=== PATIENT | female | born 1930 | race Caucasian/White ===

== ENCOUNTER 2016-10-13 13:39 | Emergency (ER) | payer OTHER, MEDICARE ==
[2016-10-13 13:53] VITALS: BP 174/89; BMI 26.2
--- NOTE | 2016-10-13 14:13 | DR.GENAD ---
HPI - PCP Primary Care Physician: BUCKY - HPI Comment HPI Comment: Pt c/o 2-day h/o Right ear pain and yellow drainage since changing her battery and filter in her hearing aide 2 days ago. She denies fever and chills but reports hearing loss. - Complaint/Symptoms Chief Complaint Doctors Comments: right ear pain and drainage Chief Complaint:: EAR INFECTION, DRAINAGE AND EAR POPPING MILD PAIN. 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 Surgery, Tonsillectomy - Family History History of Family Medical Conditions: Yes Family Medical History: [place], Coronary Artery Disease, Heart Failure, Sudden Cardiac , Hypertension - Social History Does any household member use tobacco: No Alcohol Use: None Do you use any recreational Drugs:: No Lives With: Alone Lives Where: Home - infectious screening In the last 2 months have you had wt loss of >10#?: NO Have you had fever, night sweats or hemotysis?: No Have you traveled outside the country in the last 6 months?: No Isolation: Standard ROS - Review of Systems Constitutional: No Symptoms Reported Eyes: No Symptoms Reported ENTM: Ear Pain, Ear Discharge, Hearing Loss Respiratoy: No Symptoms Reported Cardiovascular: No Symptoms Reported Gastrointestinal/Abdominal: No Symptoms Reported Genitourinary: No Symptoms Reported Neurological: No Symptoms Reported Psychiatric: No Symptoms Reported All Other Systems: Reviewed and Negative PE - Vital Signs Vitals: Temperature 98.1 F Pulse Rate 91 Respiratory Rate 20 Blood Pressure [Left Arm] 176/74 Blood Pressure 174/89 O2 Sat by Pulse Oximetry 98 - General Limitations: No Limitations General Appearance: Alert, In No Apparent Distress - Head Head Exam: Normal Inspection, Atraumatic - ENT External Ear Exam: Normal External Inspection TM/Canal Exam: Left Normal, Right Erythema, Right Effusion, Right Canal Drainage Nose Exam: Normal Nose Exam Mouth Exam: Normal Inspection Throat Exam: Normal Inspection - Neck Neck Exam: Normal Inspection, Full ROM, Trachea Midline - Chest Chest Inspection: Normal Inspection - Respiratory Respiratory Exam: Normal Lung Sounds Bilat Respiratory Exam: Bilateral Clear to Auscultation - Cardiovascular Cardiovascular Exam: Regular Rate, Irregular Rhythm, Normal Heart Sounds - Neurologic Neurological Exam: Alert, Oriented X3, CN II-XII Intact - Psychiatric Psychiatric Exam: Normal Affect, Normal Mood - Skin Skin Exam: Warm, Dry, Intact, Normal Color [facility] - Differential Diagnosis Differential Diagnosis: otitis media, suppurative otitis media ROR - Labs Reviewed Laboratory Results Reviewed?: No (none ordered) - Diagnosis Discharge Problem: Suppurative otitis media of right ear with tympanic membrane rupture Qualifiers: Chronicity: acute - Discharge Plan Disposition: HOME, SELF-CARE Condition: Stable Prescriptions: Ciprofloxacin HCl [Ciprofloxacin HCl ophth] 1 - 2 drops AFFEYE Q2H #5 ml - Follow ups/Referrals Follow ups/Referrals: Abraham Reed [Primary Care Provider] - 3 days - Instructions Instructions: Otitis Media, Adult, [id number]
[2016-10-13] MEDS ORDERED: ROCEPHIN VIAL 2 GM IM ONE (14:41)
[2016-10-13] MEDS ORDERED: ROCEPHIN VIAL 1 GM ONE (14:42)
[2016-10-13] MEDS ORDERED: XYLOCAINE 1 % (PLAIN) ONE (14:43)
[2016-10-13] MEDS ORDERED: ROCEPHIN VIAL 2 GM IM NR (15:00)
== END 2016-10-13 15:00 | disposition home or self-care (01) ==
LOC: ER 13:48
DX: H66.41 Suppurative otitis media, unspecified, right ear (principal)
CPT/HCPCS: 96372; 99281; 99282; J0696; J2001

== ENCOUNTER 2017-03-04 16:12 | Inpatient (IN) | payer OTHER, MEDICARE ==
--- NOTE | 2017-03-04 17:08 | DR.GENAD ---
HPI - PCP Primary Care Physician: TRE - HPI Comment HPI Comment: DENIES SOB. NO HISTORY OF TRAUMA. - Complaint/Symptoms Chief Complaint Doctors Comments: PAIN, SWELLING RIGHT ANKLE AND FOOT. HAVE FEVER. UNABLE TO BEAR WEIGHT ON THE LEFT SIDE. Chief Complaint:: PT C/O PAIN TO LEFT ANKLE AND STATES SHE CAN'T WALK ON IT. 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: No Have you traveled outside the country in the last 6 months?: No Isolation: Standard ROS - Review of Systems Constitutional: Fever, Weakness Eyes: negative: Eye Pain, Discharge ENTM: negative: Ear Pain, Nose Discharge, Nose Congestion, Throat Pain Respiratoy: Short of Breath (ON EXERTION). negative: Productive Cough, Non- Productive Cough, Wheezing, Hemoptysis Cardiovascular: Edema (LT ANKLE AND FOOT). negative: Chest Pain Gastrointestinal/Abdominal: No Symptoms Reported Genitourinary: negative: Hematuria Neurological: negative: Headache, Weakness, Dizziness Musculoskeletal: Back Pain Integumentary: Change in Color, Other (LEFT ANKLE AND FOOT SWOLLEN AND SLIGHTLY RED.) Hematologic/Lymphatic: Easy Bruising Endocrine: No Symptoms Reported All Other Systems: Reviewed and Negative PE - Vital Signs Vitals: Temperature 99.2 F Pulse Rate 92 Respiratory Rate 20 Blood Pressure [Left Arm] 176/74 Blood Pressure 138/67 - General Limitations: No Limitations General Appearance: Alert - Head Head Exam: Normal Inspection - Eyes Eye exam: Normal Appearance - ENT ENT Exam: Normal External Ear Exam External Ear Exam: Normal External Inspection TM/Canal Exam: Bilateral Normal Nose Exam: Normal Nose Exam Mouth Exam: Normal Inspection Throat Exam: Normal Inspection - Neck Neck Exam: Trachea Midline - Chest Chest Inspection: Symmetric Chest Wall Rise - Respiratory Respiratory Exam: Normal Lung Sounds Bilat Respiratory Exam: Bilateral Rhonchi, Lower Rhonchi - Cardiovascular Cardiovascular Exam: Regular Rate, Normal Rhythm, Normal Heart Sounds - Abdominal Exam Abdominal Exam: Normal Bowel Sounds, Soft. negative: Tenderness - Extremities Extremities Exam: Tenderness (SWELLING, SLIGHT REDNESS AND TENDERNESS ON LEFT ANKLE AND FOOT.) - Back Back Exam: Paraspinal Tenderness MDM - Additional Information Additional Information Obtained From: Family - Differential Diagnosis Differential Diagnosis: GOUT, FRATURE, CELLULITIS, SPRAIN Course - Treatment Treatment: SEE ORDERS. - Consultation Consultation Comments: DISCUSS PATIENT WITH PENG BROWN. HE WILL ADMIT PATIENT. - Education/Counseling Education/Counseling: Patient, Family, Education Educated On: Diagnosis ROR - Labs Reviewed Laboratory Results Reviewed?: Yes Result Diagrams: 03/05/17 04:05 03/05/17 04:05 Laboratory: WBC 10.0 X10^3/uL (3.6-10.0) 03/04/17 18:05 RBC 4.83 X10^6/uL (3.5-5.4) 03/04/17 18:05 Hgb 13.3 g/dL (12.0-16.0) 03/04/17 18:05 Hct 39.1 % (36.0-47.0) 03/04/17 18:05 MCV 81.0 fL (80.0-100.0) 03/04/17 18:05 MCH 27.5 pg (27.0-34.0) 03/04/17 18:05 MCHC 34.0 g/dL (33.0-35.0) 03/04/17 18:05 RDW 17.4 % (11.6-16.5) H 03/04/17 18:05 Plt Count 162 X10^3/uL (150.0-450.0) 03/04/17 18:05 MPV 8.4 fL (7.4-11.0) 03/04/17 18:05 Neut % 88.5 % (42.0-75.0) H 03/04/17 18:05 Lymph % 4.9 % (21.0-51.0) L 03/04/17 18:05 [place] % 6.2 % (0.0-13.0) 03/04/17 18:05 Eos % 0.0 % (0.9-2.9) L 03/04/17 18:05 Baso % 0.4 % (0.2-1.0) 03/04/17 18:05 Neut # 8.9 x10^3/uL (2.2-4.8) H 03/04/17 18:05 Lymph # 0.5 X10^3/uL (1.3-2.9) L 03/04/17 18:05 [place] # 0.6 x10^3/uL (0.3-0.8) 03/04/17 18:05 Eos # 0.0 x10^3/uL (0.0-0.2) 03/04/17 18:05 Baso # 0.0 X10^3/uL (0.0-0.1) 03/04/17 18:05 Absolute Nucleated RBC 0.0 /100WBC 03/04/17 18:05 Sodium 128 mmol/L (136-145) L 03/04/17 18:05 Corrected Sodium 129 mmol/L (136-145) L 03/04/17 18:05 Potassium 3.9 mmol/L (3.5-5.1) 03/04/17 18:05 Chloride 94 mmol/L (98-107) L 03/04/17 18:05 Carbon Dioxide 27.3 mmol/L (21-32) 03/04/17 18:05 BUN 22 mg/dL (7-18) H 03/04/17 18:05 Creatinine 0.83 mg/dL (0.55-1.02) 03/04/17 18:05 Est GFR (MDRD) Af Amer > 60 (>60) 03/04/17 18:05 Est GFR (MDRD) Non-Af > 60 (>60) 03/04/17 18:05 Glucose 136 mg/dL (65-99) H 03/04/17 18:05 Uric Acid 3.8 mg/dL (2.6-6.0) 03/04/17 18:05 Calcium 8.7 mg/dL (8.5-10.1) 03/04/17 18:05 Corrected Calcium TNP 03/04/17 18:05 Total Bilirubin 0.80 mg/dL (0.2-1.0) 03/04/17 18:05 AST 29 Units/L (15-37) 03/04/17 18:05 ALT 24 Units/L (12-78) 03/04/17 18:05 Alkaline Phosphatase 70 Units/L (46-116) 03/04/17 18:05 Total Protein 6.6 g/dL (6.4-8.2) 03/04/17 18:05 Albumin 3.7 g/dL (3.4-5.0) 03/04/17 18:05 Globulin 2.9 g/dL (2.5-4.5) 03/04/17 18:05 Albumin/Globulin Ratio 1.3 Ratio (1.1-2.1) 03/04/17 18:05 - XRAY XRAY Findings: REPORT DISCUSS WITH PATIENT. - Diagnosis Discharge Problem: Hyponatremia, Chondrocalcinosis, Rash Left ankle pain Qualifiers: Chronicity: acute Qualified Code(s): M25.572 - Pain in left ankle and joints of left foot Pseudogout of ankle Qualifiers: Laterality: left Qualified Code(s): M11.272 - Other chondrocalcinosis, left ankle and foot - Discharge Plan Disposition: ADMITTED INPATIENT Condition: Stable - Follow ups/Referrals - Instructions
--- NOTE | 2017-03-04 17:54 | RAD ---
Examination: Left ankle, three views History: Swelling, diabetes and arthritis Findings: No acute fracture or dislocation or bone destruction. Nonacute fragmentation at the medial malleolus. The joint space is symmetric. Soft tissue calcification is noted medial to the talus. Impression: No acute osseous abnormality noted. Degenerative changes at the medial joint margin. Soft tissue calcification adjacent to the talus may indicate chondrocalcinosis. Reported By:
--- NOTE | 2017-03-04 17:56 | RAD ---
Examination: Left foot, three views History: Ankle swelling, diabetes and arthritis Findings: No definite fracture, dislocation or osteolytic process. Flattening of the longitudinal arc h. Calcaneal enthesophyte. Soft tissue calcification medial to the talus. Impression: No acute process identified. Pes planus with calcaneal spur. Soft tissue calcification de scribed consistent with chondrocalcinosis. Reported By:
[2017-03-04 18:20] LABS: BASOPHILS % (AUTO) 0.4 % (0.2-1.0); HEMATOCRIT 39.1 % (36.0-47.0); HEMOGLOBIN 13.3 g/dL (12.0-16.0); LYMPHOCYTES # (AUTO) 0.5 X10^3/uL (1.3-2.9); LYMPHOCYTES % (AUTO) 4.9 % (21.0-51.0); MEAN CORPUSCULAR HEMOGLOBIN 27.5 pg (27.0-34.0); MEAN PLATELET VOLUME 8.4 fL (7.4-11.0); MONOCYTES # (AUTO) 0.6 x10^3/uL (0.3-0.8); MONOCYTES % (AUTO) 6.2 % (0.0-13.0); NEUTROPHILS # (AUTO) 8.9 x10^3/uL (2.2-4.8); NEUTROPHILS % (AUTO) 88.5 % (42.0-75.0); PLATELET COUNT 162 X10^3/uL (150.0-450.0); RED BLOOD COUNT 4.83 X10^6/uL (3.5-5.4); RED CELL DISTRIBUTION WIDTH 17.4 % (11.6-16.5)
[2017-03-04] MEDS ORDERED: DECADRON INJ IM ONE (18:32)
[2017-03-04] MEDS ORDERED: TORADOL 60 MG VIAL IM ONE (18:32)
[2017-03-04 18:41] LABS: ALANINE AMINOTRANSFERASE 24 Units/L (12-78); ALBUMIN 3.7 g/dL (3.4-5.0); ALKALINE PHOSPHATASE 70 Units/L (46-116); ASPARTATE AMINO TRANSFERASE 29 Units/L (15-37); BLOOD UREA NITROGEN 22 mg/dL (7-18); CALCIUM 8.7 mg/dL (8.5-10.1); CARBON DIOXIDE 27.3 mmol/L (21-32); CHLORIDE 94 mmol/L (98-107); COR NA(FOR HYPERGLY) 129 mmol/L (136-145); CREATININE 0.83 mg/dL (0.55-1.02); SODIUM 128 mmol/L (136-145); TOTAL PROTEIN 6.6 g/dL (6.4-8.2); URIC ACID 3.8 mg/dL (2.6-6.0); eGFR BLACK RACES > 60 (>60); eGFR NON BLACK RACES > 60 (>60)
[2017-03-04] MEDS ORDERED: TORADOL 60 MG VIAL ONE (18:42)
[2017-03-04] MEDS ORDERED: DECADRON INJ ONE (18:42)
[2017-03-04] MEDS: NS 1000 ML 1,000 ML IV SCH (20:58)
[2017-03-04 21:36] VITALS: BMI 27.1
[2017-03-05 03:53] LABS: BILIRUBIN,URINE NEGATIVE (NEGATIVE); BLOOD/HEMOGLOBIN,URINE 1+ (NEGATIVE); GLUCOSE, URINE 2+ (NEGATIVE); KETONES,URINE NEGATIVE (NEGATIVE); LEUKOCYTE ESTERASE ,URINE 1+ (NEGATIVE); NITRITES,URINE NEGATIVE (NEGATIVE); PROTEIN,URINE 2+ (NEGATIVE); UROBILINOGEN,URINE NORMAL (NORMAL)
[2017-03-05 04:05] LABS: APPEARANCE,URINE CLEAR (CLEAR); BACTERIA,URINE TRACE /HPF (NEGATIVE); COLOR,URINE YELLOW (YELLOW); MUCUS,URINE FEW /HPF (NEGATIVE); RBC,URINE 0-3 /HPF (NEGATIVE); SQUAMOUS EPITHELIAL CELL,UR FEW /HPF (NEGATIVE)
[2017-03-05 04:58] LABS: ALANINE AMINOTRANSFERASE 30 Units/L (12-78); ALBUMIN 3.1 g/dL (3.4-5.0); ALKALINE PHOSPHATASE 66 Units/L (46-116); ASPARTATE AMINO TRANSFERASE 35 Units/L (15-37); BLOOD UREA NITROGEN 24 mg/dL (7-18); CALCIUM 8.4 mg/dL (8.5-10.1); CARBON DIOXIDE 27.6 mmol/L (21-32); CHLORIDE 98 mmol/L (98-107); COR CA(FOR HYPOALB) 9.1 mg/dL (8.5-10.1); COR NA(FOR HYPERGLY) 133 mmol/L (136-145); CREATININE 0.88 mg/dL (0.55-1.02); SODIUM 133 mmol/L (136-145); eGFR BLACK RACES > 60 (>60); eGFR NON BLACK RACES > 60 (>60)
[2017-03-05 05:09] LABS: BASOPHILS % (AUTO) 0.4 % (0.2-1.0); EOSINOPHILS % (AUTO) 0.1 % (0.9-2.9); HEMATOCRIT 35.8 % (36.0-47.0); HEMOGLOBIN 12.3 g/dL (12.0-16.0); LYMPHOCYTES # (AUTO) 0.4 X10^3/uL (1.3-2.9); LYMPHOCYTES % (AUTO) 4.7 % (21.0-51.0); MEAN CORPUSCULAR HEMOGLOBIN 27.9 pg (27.0-34.0); MEAN CORPUSCULAR HGB CONC 34.4 g/dL (33.0-35.0); MEAN CORPUSCULAR VOLUME 81.1 fL (80.0-100.0); MEAN PLATELET VOLUME 8.9 fL (7.4-11.0); MONOCYTES # (AUTO) 0.4 x10^3/uL (0.3-0.8); MONOCYTES % (AUTO) 5.1 % (0.0-13.0); NEUTROPHILS # (AUTO) 6.7 x10^3/uL (2.2-4.8); NEUTROPHILS % (AUTO) 89.7 % (42.0-75.0); PLATELET COUNT 137 X10^3/uL (150.0-450.0); RED BLOOD COUNT 4.42 X10^6/uL (3.5-5.4); RED CELL DISTRIBUTION WIDTH 17.4 % (11.6-16.5); WHITE BLOOD COUNT 7.5 X10^3/uL (3.6-10.0)
[2017-03-05 05:19] LABS: ERYTHROCYTE SEDIMENTATION RATE 2 MM/HOUR (0-20)
--- NOTE | 2017-03-05 12:49 | VAS ---
HISTORY: Bilateral lower extremity edema. Left ankle swelling. Study: Bilateral lower extremity duplex venous ultrasound. Comparison: None. TECHNIQUE: Multiple livingston scale and color flow Doppler images of the deep venous system were obtained of the right and left lower extremity. FINDINGS: The deep venous system of the right and left lower extremities were evaluated from the level of the c ommon femoral vein through the popliteal vein. Normal color flow and augmentation can be observed. In addition, normal compression is seen throughout the deep venous system. IMPRESSION: Negative for bilateral lower extremity DVT. Reported By:
[2017-03-05] MEDS ORDERED: LEVAQUIN TAB 500 MG PO SCH (13:00)
[2017-03-05] MEDS ORDERED: NS 100 ML IV 100 ML IV ONE (14:56)
[2017-03-05] MEDS ORDERED: TEFLARO IV ONE (14:56)
[2017-03-05] MEDS: NORCO 5/325 MG TAB PO PRN (15:05)
[2017-03-05] MEDS: TEFLARO 600 MG in NS 100 ML IV + SPIKE MINIBAG* 100 ML IV SCH ×2 (15:05→20:23)
[2017-03-05] MEDS ORDERED: TYLENOL 325 MG TAB PO PRN (16:23)
--- NOTE | 2017-03-05 16:34 | CT ---
History: Left foot and ankle pain. Procedure: CT of the left ankle without IV contrast. CT of the left foot without IV contrast Technique: Multiple contiguous axial CT images were obtained through the left ankle without IV contra st. Sagittal and coronal reformatted images were reconstructed. Multiple contiguous axial CT images w ere then obtained through the foot from the hindfoot through the digits without IV contrast. Sagittal and coronal reformatted images were reconstructed. Automated exposure control (AEC) was utilized to adjust the MA and/or kV according to patient size. Comparison:NONE Findings: Left ankle: There is severe generalized osteopenia. No acute fracture or dislocation is demonstrated. Ankle mortise appears intact. There is an osteochondral lesion along the posterior medial aspect of the dome of the talus with a 5 mm subcortical cyst. There is an overlying 2 x 4 calcific density whic h may be an osteochondral loose body or a focus of chondrocalcinosis within the articular cartilage. There is subtalar osteoarthrosis with cystic change within the talus and calcaneus adjacent to middle and posterior subtalar facet joints. There is soft tissue calcification along the adjacent to the ti biotalar joint capsule consistent with chondrocalcinosis. There is mild generalized soft tissue edema . There is a small tibiotalar joint effusion. Left foot: There is subtalar osteoarthrosis with extensive cystic change in the talus and calcaneus a djacent to middle and posterior subtalar facets. There is severe generalized osteopenia. There is tomás cification of the periarticular soft tissues/joint capsules and chondrocalcinosis seen within the mid dle subtalar facet joint. The tarsometatarsal articulations appear aligned. There is generalized soft tissue swelling. There is a cortical regularity involving the proximal aspect of the cuboid with 2 3 mm of central dep ression demonstrated on sagittal image 20 series 9004. This is consistent with an age indeterminate f racture. Clinical correlation is required. There is moderate to severe osteoarthrosis of the calcaneo cuboid articulation with extensive cystic change. Multi site midfoot osteoarthrosis is noted. Impression: 1. Cortical regularity involving central aspect of the cuboid at the calcaneocuboid articulation, con cerning for an age-indeterminate depressed fracture. Clinical correlation is required. 2. Moderate severe multi side osteoarthrosis involving subtalar and multiple midfoot articulations, w ith associated extensive cystic changes as discussed above. 3. Multiple foci of periarticular calcification involving the joint capsules and hyaline cartilage co nsistent with chondrocalcinosis and calcium pyrophosphate deposition disease. 4. Osteochondral lesion along posterior-medial aspect of the dome of the talus with a subcortical cys t. Overlying 2 x 4 mm calcific density is noted which may represent an intra-articular loose body wit hin the tibiotalar joint or a focus of chondrocalcinosis. Consider correlation with ankle MRI as clin ically indicated. 5. Severe generalized osteopenia 6. Other findings as above Reported By:
[2017-03-05] MEDS ORDERED: ROBITUSSIN DM PO PRN (20:22)
[2017-03-05] MEDS: ACTOS PO SCH (21:54)
[2017-03-05] MEDS: NS 1000 ML 1,000 ML IV SCH (22:28)
[2017-03-06 06:26] LABS: BASOPHILS % (AUTO) 0.4 % (0.2-1.0); HEMATOCRIT 34.7 % (36.0-47.0); HEMOGLOBIN 11.8 g/dL (12.0-16.0); LYMPHOCYTES # (AUTO) 0.2 X10^3/uL (1.3-2.9); LYMPHOCYTES % (AUTO) 3.4 % (21.0-51.0); MEAN CORPUSCULAR HEMOGLOBIN 27.8 pg (27.0-34.0); MEAN CORPUSCULAR HGB CONC 34.1 g/dL (33.0-35.0); MEAN CORPUSCULAR VOLUME 81.4 fL (80.0-100.0); MEAN PLATELET VOLUME 9.1 fL (7.4-11.0); MONOCYTES # (AUTO) 0.2 x10^3/uL (0.3-0.8); MONOCYTES % (AUTO) 3.3 % (0.0-13.0); NEUTROPHILS # (AUTO) 6.8 x10^3/uL (2.2-4.8); NEUTROPHILS % (AUTO) 92.9 % (42.0-75.0); PLATELET COUNT 97 X10^3/uL (150.0-450.0); RED BLOOD COUNT 4.27 X10^6/uL (3.5-5.4); RED CELL DISTRIBUTION WIDTH 17.9 % (11.6-16.5); WHITE BLOOD COUNT 7.3 X10^3/uL (3.6-10.0)
[2017-03-06 06:50] LABS: ALANINE AMINOTRANSFERASE 41 Units/L (12-78); ALBUMIN 2.5 g/dL (3.4-5.0); ALKALINE PHOSPHATASE 58 Units/L (46-116); ASPARTATE AMINO TRANSFERASE 56 Units/L (15-37); BLOOD UREA NITROGEN 20 mg/dL (7-18); CARBON DIOXIDE 26.7 mmol/L (21-32); CHLORIDE 97 mmol/L (98-107); COR CA(FOR HYPOALB) 9.2 mg/dL (8.5-10.1); COR NA(FOR HYPERGLY) 131 mmol/L (136-145); CREATININE 0.86 mg/dL (0.55-1.02); SODIUM 131 mmol/L (136-145); TOTAL PROTEIN 5.4 g/dL (6.4-8.2); eGFR BLACK RACES > 60 (>60); eGFR NON BLACK RACES > 60 (>60)
[2017-03-06 07:18] LABS: BAND NEUTROPHILS % 8 % (0-10); PLATELET MORPHOLOGY COMMENT NORMAL (NORMAL)
[2017-03-06 07:21] LABS: ERYTHROCYTE SEDIMENTATION RATE 16 MM/HOUR (0-20)
[2017-03-06] MEDS: TEFLARO 600 MG in NS 100 ML IV + SPIKE MINIBAG* 100 ML IV SCH (08:49)
[2017-03-06] MEDS: ACTOS PO SCH (08:49)
[2017-03-06] MEDS: SYNTHROID 100 mcg TAB PO SCH ×2 (08:55→17:05)
--- NOTE | 2017-03-06 13:29 | DR.CONSULT ---
Consult - Consultation for Day of: Date: 03/06/17 (left foot pain) - Chief Complaint Chief Complaint: left foot pain. no recent trauma. has had pain in the past. KCO flat foot. - Allergies Allergies/Adverse Reactions: Allergies Allergy/AdvReac Type Severity Reaction Status Date / Time Sulfa (Sulfonamide Allergy Unknown Verified 03/04/17 18:57 Antibiotics) [SULFA] moxifloxacin Allergy Verified 03/04/17 18:57 - History of Present Illness History of Present Illness: XR and CT- hind and mid foot OA.Talus cystic changes. osteochondral fragment seen in talus. 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, Tonsillectomy - Family History Family Medical History: [place], Coronary Artery Disease, Heart Failure, Sudden Cardiac , Hypertension - Social History Does patient currently use any type of tobacco product: No Have you used tobacco products in the last 12 months: No Type of Tobacco Use: None Does any household member use tobacco: No Alcohol Use: None Drug Use: None - Medications Home Medications: Levothyroxine Sodium [Levothyroxine Sodium] 100 mcg PO DAILY 03/04/17 [History Confirmed 03/04/17] Meloxicam [Meloxicam] 7.5 mg PO DAILY 03/04/17 [History Confirmed 03/04/17] Pioglitazone HCl [Pioglitazone HCl] 45 mg PO DAILY 03/04/17 [History Confirmed 03/04/17] Verapamil HCl Ext Rel [CALAN SR 240 MG *] 240 mg PO DAILY 03/04/17 [History Confirmed 03/04/17] - Physical Exam Vital Signs: Temperature 97.9 F Pulse Rate [Right Brachial] 88 Pulse Rate [Left] 100 Pulse Rate 92 Respiratory Rate 20 Blood Pressure [Right Arm] 114/59 Blood Pressure [Left Arm] 176/74 Blood Pressure 138/67 O2 Sat by Pulse Oximetry 96 - Plan Plan: Provisional DIagnosis- 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 . BOOT. NWB till further advise. pain management- Tab [place] 5- 325 1 tab q 6/prn. pt can't get MRI - Due to spinal stimulator. FU as advised.
[2017-03-06] MEDS: NORCO 5/325 MG TAB PO PRN ×2 (13:54→19:59)
[2017-03-06] MEDS: COLACE CAP 100 MG PO PRN (17:52)
[2017-03-06] MEDS: MILK OF MAGNESIA PO PRN (17:52)
[2017-03-06] MEDS: ROCEPHIN VIAL 1 GM 1 GM in NS 100 ML IV + SPIKE MINIBAG* 100 ML IV SCH (20:00)
[2017-03-06] MEDS: SNACK - Diabetic Appropriate PO SCH (20:50)
[2017-03-06] MEDS ORDERED: VANCOMYCIN HCL 1 GM VIAL ONE (23:06)
[2017-03-06] MEDS ORDERED: NS 250 ML IV 250 ML IV ONE (23:06)
[2017-03-06] MEDS: VANCOMYCIN HCL 1 GM VIAL 1 GM in D5W 250 ML IV 250 ML IV SCH (23:18)
[2017-03-07] MEDS: NORCO 5/325 MG TAB PO PRN ×2 (01:52→08:06)
[2017-03-07] MEDS: NS 1000 ML 1,000 ML IV SCH (03:33)
[2017-03-07 06:23] LABS: ALANINE AMINOTRANSFERASE 40 Units/L (12-78); ALBUMIN 2.1 g/dL (3.4-5.0); ALKALINE PHOSPHATASE 60 Units/L (46-116); ASPARTATE AMINO TRANSFERASE 47 Units/L (15-37); BLOOD UREA NITROGEN 17 mg/dL (7-18); CALCIUM 8.1 mg/dL (8.5-10.1); CHLORIDE 98 mmol/L (98-107); COR CA(FOR HYPOALB) 9.6 mg/dL (8.5-10.1); CREATININE 0.65 mg/dL (0.55-1.02); MAGNESIUM 1.7 mg/dL (1.7-2.9); SODIUM 132 mmol/L (136-145); eGFR BLACK RACES > 60 (>60); eGFR NON BLACK RACES > 60 (>60)
[2017-03-07 06:54] LABS: ERYTHROCYTE SEDIMENTATION RATE 17 MM/HOUR (0-20)
--- NOTE | 2017-03-07 07:00 | RAD ---
Examination: Portable AP chest History: Fever Comparison 04/03/2014 Findings: Continued normal heart size with essentially clear lungs. No consolidation, pneumonia or pl eural fluid. A right shoulder prosthesis is now present. Impression: No acute chest disease demonstrated. Reported By:
[2017-03-07 07:35] LABS: BASOPHILS % (AUTO) 0.4 % (0.2-1.0); EOSINOPHILS % (AUTO) 0.8 % (0.9-2.9); HEMATOCRIT 32.4 % (36.0-47.0); HEMOGLOBIN 10.9 g/dL (12.0-16.0); LYMPHOCYTES # (AUTO) 0.5 X10^3/uL (1.3-2.9); LYMPHOCYTES % (AUTO) 7.7 % (21.0-51.0); MEAN CORPUSCULAR HEMOGLOBIN 27.7 pg (27.0-34.0); MEAN CORPUSCULAR HGB CONC 33.7 g/dL (33.0-35.0); MEAN CORPUSCULAR VOLUME 82.3 fL (80.0-100.0); MEAN PLATELET VOLUME 9.1 fL (7.4-11.0); MONOCYTES # (AUTO) 0.5 x10^3/uL (0.3-0.8); NEUTROPHILS % (AUTO) 83.1 % (42.0-75.0); PLATELET COUNT 77 X10^3/uL (150.0-450.0); RED BLOOD COUNT 3.93 X10^6/uL (3.5-5.4); RED CELL DISTRIBUTION WIDTH 17.7 % (11.6-16.5)
[2017-03-07] MEDS: ACTOS PO SCH (08:06)
[2017-03-07] MEDS: COLACE CAP 100 MG PO PRN (08:06)
[2017-03-07] MEDS: ROCEPHIN VIAL 1 GM 1 GM in NS 100 ML IV + SPIKE MINIBAG* 100 ML IV SCH (10:34)
[2017-03-07] MEDS ORDERED: ROBITUSSIN AC PO PRN (15:42)
[2017-03-07] MEDS ORDERED: PATIENT'S HOME MEDICATION (Meloxicam [Meloxicam] 7.5 MG) PO SCH (15:45)
[2017-03-07] MEDS ORDERED: ACTOS PO SCH (15:45)
[2017-03-07] MEDS ORDERED: SYNTHROID 100 mcg TAB PO SCH (16:00)
[2017-03-07] MEDS: SYNTHROID 100 mcg TAB PO SCH (16:53)
[2017-03-07] MEDS: MILK OF MAGNESIA PO PRN (16:53)
[2017-03-07] MEDS ORDERED: VANCOMYCIN HCL 1 GM VIAL ONE ×2 (20:55→21:14)
[2017-03-07] MEDS ORDERED: NS 250 ML IV 250 ML IV ONE (21:24)
[2017-03-07] MEDS: SNACK - Diabetic Appropriate PO SCH (21:30)
[2017-03-07] MEDS: VANCOMYCIN HCL 1 GM VIAL 1 GM in D5W 250 ML IV 250 ML IV SCH (21:31)
[2017-03-08] MEDS: NORCO 5/325 MG TAB PO PRN (01:10)
[2017-03-08 05:28] LABS: BASOPHILS % (AUTO) 0.3 % (0.2-1.0); EOSINOPHILS # (AUTO) 0.1 x10^3/uL (0.0-0.2); HEMATOCRIT 31.5 % (36.0-47.0); HEMOGLOBIN 10.8 g/dL (12.0-16.0); LYMPHOCYTES # (AUTO) 0.6 X10^3/uL (1.3-2.9); LYMPHOCYTES % (AUTO) 10.7 % (21.0-51.0); MEAN CORPUSCULAR HEMOGLOBIN 27.8 pg (27.0-34.0); MEAN CORPUSCULAR HGB CONC 34.1 g/dL (33.0-35.0); MEAN CORPUSCULAR VOLUME 81.4 fL (80.0-100.0); MEAN PLATELET VOLUME 9.4 fL (7.4-11.0); MONOCYTES # (AUTO) 0.5 x10^3/uL (0.3-0.8); MONOCYTES % (AUTO) 8.8 % (0.0-13.0); NEUTROPHILS # (AUTO) 4.7 x10^3/uL (2.2-4.8); NEUTROPHILS % (AUTO) 79.2 % (42.0-75.0); PLATELET COUNT 80 X10^3/uL (150.0-450.0); RED BLOOD COUNT 3.87 X10^6/uL (3.5-5.4); RED CELL DISTRIBUTION WIDTH 17.8 % (11.6-16.5); WHITE BLOOD COUNT 5.9 X10^3/uL (3.6-10.0)
[2017-03-08 05:39] LABS: ALANINE AMINOTRANSFERASE 31 Units/L (12-78); ALBUMIN 2.1 g/dL (3.4-5.0); ALKALINE PHOSPHATASE 63 Units/L (46-116); ASPARTATE AMINO TRANSFERASE 32 Units/L (15-37); BLOOD UREA NITROGEN 15 mg/dL (7-18); CALCIUM 8.2 mg/dL (8.5-10.1); CARBON DIOXIDE 27.6 mmol/L (21-32); CHLORIDE 98 mmol/L (98-107); COR CA(FOR HYPOALB) 9.7 mg/dL (8.5-10.1); CREATININE 0.72 mg/dL (0.55-1.02); SODIUM 131 mmol/L (136-145); TOTAL PROTEIN 5.2 g/dL (6.4-8.2); eGFR BLACK RACES > 60 (>60); eGFR NON BLACK RACES > 60 (>60)
[2017-03-08] MEDS: ACTOS PO SCH (08:38)
[2017-03-08] MEDS: MOBIC TAB 15 MG PO SCH (08:38)
[2017-03-08] MEDS: CALAN SR 240 MG PO SCH (08:38)
[2017-03-08] MEDS: ROCEPHIN VIAL 1 GM 1 GM in NS 100 ML IV + SPIKE MINIBAG* 100 ML IV SCH (08:40)
[2017-03-08] MEDS: SYNTHROID 100 mcg TAB PO SCH (17:02)
[2017-03-08] MEDS: NS 1000 ML 1,000 ML IV SCH (17:02)
[2017-03-08] MEDS ORDERED: VANCOMYCIN HCL 1 GM VIAL ONE (20:25)
[2017-03-08] MEDS ORDERED: NS 250 ML IV 250 ML IV ONE (20:26)
[2017-03-08 20:36] LABS: CREATININE 0.71 mg/dL (0.55-1.02); VANCOMYCIN,TROUGH 6.2 ug/mL (15-20)
[2017-03-08] MEDS: SNACK - Diabetic Appropriate PO SCH (21:23)
[2017-03-08] MEDS: VANCOMYCIN HCL 1 GM VIAL 1 GM in D5W 250 ML IV 250 ML IV SCH (21:23)
[2017-03-09] MEDS: NS 1000 ML 1,000 ML IV SCH ×2 (04:44→16:38)
[2017-03-09 05:59] LABS: BASOPHILS % (AUTO) 0.5 % (0.2-1.0); EOSINOPHILS % (AUTO) 0.8 % (0.9-2.9); HEMATOCRIT 32.9 % (36.0-47.0); HEMOGLOBIN 11.1 g/dL (12.0-16.0); LYMPHOCYTES # (AUTO) 0.8 X10^3/uL (1.3-2.9); MEAN CORPUSCULAR HEMOGLOBIN 27.3 pg (27.0-34.0); MEAN CORPUSCULAR HGB CONC 33.6 g/dL (33.0-35.0); MEAN CORPUSCULAR VOLUME 81.2 fL (80.0-100.0); MEAN PLATELET VOLUME 9.6 fL (7.4-11.0); MONOCYTES # (AUTO) 0.5 x10^3/uL (0.3-0.8); MONOCYTES % (AUTO) 9.9 % (0.0-13.0); NEUTROPHILS # (AUTO) 4.2 x10^3/uL (2.2-4.8); NEUTROPHILS % (AUTO) 74.8 % (42.0-75.0); PLATELET COUNT 92 X10^3/uL (150.0-450.0); RED BLOOD COUNT 4.06 X10^6/uL (3.5-5.4); RED CELL DISTRIBUTION WIDTH 17.8 % (11.6-16.5); WHITE BLOOD COUNT 5.6 X10^3/uL (3.6-10.0)
[2017-03-09 06:06] LABS: ALANINE AMINOTRANSFERASE 28 Units/L (12-78); ALBUMIN 2.1 g/dL (3.4-5.0); ALKALINE PHOSPHATASE 62 Units/L (46-116); ASPARTATE AMINO TRANSFERASE 32 Units/L (15-37); BLOOD UREA NITROGEN 16 mg/dL (7-18); CALCIUM 8.3 mg/dL (8.5-10.1); CARBON DIOXIDE 26.6 mmol/L (21-32); CHLORIDE 99 mmol/L (98-107); COR CA(FOR HYPOALB) 9.8 mg/dL (8.5-10.1); CREATININE 0.62 mg/dL (0.55-1.02); SODIUM 133 mmol/L (136-145); TOTAL PROTEIN 5.5 g/dL (6.4-8.2); eGFR BLACK RACES > 60 (>60); eGFR NON BLACK RACES > 60 (>60)
[2017-03-09 06:27] LABS: ERYTHROCYTE SEDIMENTATION RATE 37 MM/HOUR (0-20)
[2017-03-09] MEDS ORDERED: D5W 250 ML IV 250 ML IV ONE (08:04)
[2017-03-09] MEDS ORDERED: VANCOMYCIN HCL 1 GM VIAL ONE ×2 (08:05→20:46)
[2017-03-09] MEDS: VANCOMYCIN HCL 1 GM VIAL 1 GM in D5W 250 ML IV 250 ML IV SCH ×2 (09:05→21:39)
[2017-03-09] MEDS: ROCEPHIN VIAL 1 GM 1 GM in NS 100 ML IV + SPIKE MINIBAG* 100 ML IV SCH (09:06)
[2017-03-09] MEDS: ACTOS PO SCH (09:07)
[2017-03-09] MEDS: CALAN SR 240 MG PO SCH (09:07)
[2017-03-09] MEDS: MOBIC TAB 15 MG PO SCH (09:07)
--- NOTE | 2017-03-09 11:13 | PCM.PROG ---
Progress Note - Progress Note for Day of Date: 03/08/17 - Subjective Subjective: WAS ADMITTED ON 03/04/17 FOR LEFT LOWER EXTREMITY REDNESS AND EDEMA AND HYPONATREMIA. A CT OF THE LEFT LOWER EXTREMITY REPORTED CONCERNS FOR AN AGE INDETERMINATE DEPRESSED FRACTURE OF THE LEFT CUBOID AT THE CALCANEO CUBOID ARTICULATION, SEVERE OSTEOPENIA, MODERATE OSTEOARTHRITIS INVOLVING THE SUBTALAR AND MULTIPLE MIDFOOT ARTICULATIONS, AND OSTEOCHONDRAL LESION WITH SUBCORTICAL CYST. WAS CONSULTED FOR ASPIRATION OF FLUID, BUT HAS NOT SEEN PATIENT AT THIS TIME. SHE CONTINUES WITH REDNESS AND SWELLING TO THE LOWER EXTREMITY. BLOOD CULTURES WERE OBTAINED ON ADMISSION AND REPORTS GROWTH OF STAPHYLOCOCCUS AUREUS. SHE IS CURRENTLY RECEIVING IV VANCOMYCIN AND ROCEPHIN DAILY. HER VITAL SIGNS THIS MORNING ARE 98.1-83-20-98%-119/57. LABS WERE OBTAINED. ABNORMAL LAB VALUES INCLUDE THE FOLLOWING: HGB 10.8, HCT 31.5, SODIUM 132, CALCIUM 8.1, AST 47, CRP 187.60, TOTAL PROTEIN 5.0, ALBUMIN 2.1. TODAY, WE WILL CONTINUE WITH CURRENT PLAN OF CARE. WE PLAN TO FOLLOW UP WITH AM LABS AND CONTINUE TO MONITOR PATIENT. - Past Medical Family Social History Past Med/Fam/Surg Hx: No changes since H&P Allergies: Allergies Sulfa (Sulfonamide Antibiotics) [SULFA] Allergy (Unknown, Verified 03/04/17 18: 57) moxifloxacin Allergy (Verified 03/04/17 18:57) - Review of Systems ROS: No change since H&P - Vital Signs and I&O's Vital Signs: Temperature 99 F Pulse Rate [Right Brachial] 76 Pulse Rate [Left] 75 Pulse Rate 92 Respiratory Rate 20 Blood Pressure [Right Arm] 134/59 Blood Pressure [Left Arm] 130/60 Blood Pressure 138/67 O2 Sat by Pulse Oximetry 94 Intake and Output: Intake & Output 03/06/17 03/07/17 03/08/17 03/09/17 11:59 11:59 11:59 11:59 Intake Total 1405 2743 1767 1697 Output Total 100 Balance 1305 2743 1767 1697 - Physical Exam Oriented: Normal Eyes: Normal Ear: Normal Nose: Normal Throat: Normal Respiratory: Normal Cardiovascular: Normal : Normal Auscultation: Bowel Sounds: Normal Palpation: Normal Tenderness: Normal Skin: Red (LEFT ANKLE/FOOT), Tender Musculoskeletal: Left, Ankle, Foot, Swelling, Tender Psychiatric: Normal Mood Description: Calm Affect: Normal Speech Pattern: Clear, Appropriate - Laboratory and Diagnostics Result Diagrams: 03/09/17 03:30 03/09/17 03:30 Labs: 03/06/17 21:50 Blood Blood Culture - Preliminary 03/06/17 22:45 Blood Blood Culture - Preliminary 03/05/17 16:36 Blood Blood Culture - Final Staphylococcus Aureus 03/05/17 16:48 Blood Blood Culture - Final Staphylococcus Aureus Laboratory WBC 5.6 X10^3/uL (3.6-10.0) 03/09/17 03:30 RBC 4.06 X10^6/uL (3.5-5.4) 03/09/17 03:30 Hgb 11.1 g/dL (12.0-16.0) L 03/09/17 03:30 Hct 32.9 % (36.0-47.0) L 03/09/17 03:30 MCV 81.2 fL (80.0-100.0) 03/09/17 03:30 MCH 27.3 pg (27.0-34.0) 03/09/17 03:30 MCHC 33.6 g/dL (33.0-35.0) 03/09/17 03:30 RDW 17.8 % (11.6-16.5) H 03/09/17 03:30 Plt Count 92 X10^3/uL (150.0-450.0) L 03/09/17 03:30 Plt Count Comment Adequate (ADEQUATE) 03/06/17 03:45 MPV 9.6 fL (7.4-11.0) 03/09/17 03:30 Neut % 74.8 % (42.0-75.0) 03/09/17 03:30 Lymph % 14.0 % (21.0-51.0) L 03/09/17 03:30 [place] % 9.9 % (0.0-13.0) 03/09/17 03:30 Eos % 0.8 % (0.9-2.9) L 03/09/17 03:30 Baso % 0.5 % (0.2-1.0) 03/09/17 03:30 Neut # 4.2 x10^3/uL (2.2-4.8) 03/09/17 03:30 Lymph # 0.8 X10^3/uL (1.3-2.9) L 03/09/17 03:30 [place] # 0.5 x10^3/uL (0.3-0.8) 03/09/17 03:30 Eos # 0.0 x10^3/uL (0.0-0.2) 03/09/17 03:30 Baso # 0.0 X10^3/uL (0.0-0.1) 03/09/17 03:30 Absolute Nucleated RBC 0.0 /100WBC 03/09/17 03:30 Total Counted 100 03/06/17 03:45 Neutrophils % (Manual) 83 % (39-76) H 03/06/17 03:45 Band Neutrophils % 8 % (0-10) 03/06/17 03:45 Lymphocytes % (Manual) 6 % (13-43) L 03/06/17 03:45 Monocytes % (Manual) 3 % (4-9) L 03/06/17 03:45 Plt Morphology Comment Normal (NORMAL) 03/06/17 03:45 RBC Morphology Normal (NORMAL) 03/06/17 03:45 ESR 37 MM/HOUR (0-20) H 03/09/17 03:30 Sodium 133 mmol/L (136-145) L 03/09/17 03:30 Corrected Sodium TNP 03/09/17 03:30 Potassium 3.8 mmol/L (3.5-5.1) 03/09/17 03:30 Chloride 99 mmol/L (98-107) 03/09/17 03:30 Carbon Dioxide 26.6 mmol/L (21-32) 03/09/17 03:30 BUN 16 mg/dL (7-18) 03/09/17 03:30 Creatinine 0.62 mg/dL (0.55-1.02) 03/09/17 03:30 Est GFR (MDRD) Af Amer > 60 (>60) 03/09/17 03:30 Est GFR (MDRD) Non-Af > 60 (>60) 03/09/17 03:30 Glucose 80 mg/dL (65-99) 03/09/17 03:30 POC Glucose (mg/dL) 82 mg/dL (65-99) 03/09/17 05:37 Lactic Acid 0.8 mmol/L (0.4-2.0) 03/05/17 16:48 Uric Acid 3.8 mg/dL (2.6-6.0) 03/04/17 18:05 Calcium 8.3 mg/dL (8.5-10.1) L 03/09/17 03:30 Corrected Calcium 9.8 mg/dL (8.5-10.1) 03/09/17 03:30 Magnesium 1.7 mg/dL (1.7-2.9) 03/07/17 03:10 Total Bilirubin 0.40 mg/dL (0.2-1.0) 03/09/17 03:30 AST 32 Units/L (15-37) 03/09/17 03:30 ALT 28 Units/L (12-78) 03/09/17 03:30 Alkaline Phosphatase 62 Units/L (46-116) 03/09/17 03:30 C-Reactive Protein 211.40 mg/L (0-3.0) H 03/09/17 03:30 Total Protein 5.5 g/dL (6.4-8.2) L 03/09/17 03:30 Albumin 2.1 g/dL (3.4-5.0) L 03/09/17 03:30 Globulin 3.4 g/dL (2.5-4.5) 03/09/17 03:30 Albumin/Globulin Ratio 0.6 Ratio (1.1-2.1) L 03/09/17 03:30 Specimen Type Clean catch urine 03/05/17 03:47 Urine Color Yellow (YELLOW) 03/05/17 03:47 Urine Appearance Clear (CLEAR) 03/05/17 03:47 Urine pH 5.0 (5.0 - 8.0) 03/05/17 03:47 Ur Specific [place] 1.020 (1.000-1.030) 03/05/17 03:47 Urine Protein 2+ (NEGATIVE) 03/05/17 03:47 Urine Glucose (UA) 2+ (NEGATIVE) 03/05/17 03:47 Urine Ketones Negative (NEGATIVE) 03/05/17 03:47 Urine Occult Blood 1+ (NEGATIVE) 03/05/17 03:47 Urine Nitrite Negative (NEGATIVE) 03/05/17 03:47 Urine Bilirubin Negative (NEGATIVE) 03/05/17 03:47 Urine Urobilinogen Normal (NORMAL) 03/05/17 03:47 Ur Leukocyte Esterase 1+ (NEGATIVE) 03/05/17 03:47 Urine RBC 0-3 /HPF (NEGATIVE) 03/05/17 03:47 Urine WBC 1-4 /HPF (NEGATIVE) 03/05/17 03:47 Ur Squamous Epith Cells Few /HPF (NEGATIVE) 03/05/17 03:47 Urine Bacteria Trace /HPF (NEGATIVE) 03/05/17 03:47 Urine Mucus Few /HPF (NEGATIVE) 03/05/17 03:47 Ur Culture Indicated? No/not indicated 03/05/17 03:47 Vancomycin Trough 6.2 ug/mL (15-20) L 03/08/17 19:58 - Plan (1) Chondrocalcinosis Status: Acute Plan: CONTINUE IV ABX, CONSULT FOR POSSIBLE ASPIRATION OF SYNOVIAL FLUID (2) Pseudogout of ankle Status: Acute Qualifiers: Laterality: left Qualified Code(s): M11.272 - Other chondrocalcinosis, left ankle and foot Plan: CONTINUE IV ABX, CONSULT FOR POSSIBLE ASPIRATION OF SYNOVIAL FLUID
[2017-03-09] MEDS: SYNTHROID 100 mcg TAB PO SCH (16:38)
[2017-03-09] MEDS ORDERED: PHARMACY COMMENT IV SCH (20:45)
[2017-03-09] MEDS ORDERED: NS 250 ML IV 250 ML IV ONE (20:46)
[2017-03-09] MEDS: SNACK - Diabetic Appropriate PO SCH (21:37)
[2017-03-10 04:46] LABS: BASOPHILS % (AUTO) 0.6 % (0.2-1.0); EOSINOPHILS # (AUTO) 0.1 x10^3/uL (0.0-0.2); HEMATOCRIT 31.5 % (36.0-47.0); HEMOGLOBIN 10.7 g/dL (12.0-16.0); LYMPHOCYTES # (AUTO) 0.8 X10^3/uL (1.3-2.9); LYMPHOCYTES % (AUTO) 12.8 % (21.0-51.0); MEAN CORPUSCULAR HEMOGLOBIN 27.2 pg (27.0-34.0); MEAN CORPUSCULAR HGB CONC 33.8 g/dL (33.0-35.0); MEAN CORPUSCULAR VOLUME 80.5 fL (80.0-100.0); MEAN PLATELET VOLUME 9.5 fL (7.4-11.0); MONOCYTES # (AUTO) 0.7 x10^3/uL (0.3-0.8); NEUTROPHILS # (AUTO) 4.5 x10^3/uL (2.2-4.8); NEUTROPHILS % (AUTO) 74.6 % (42.0-75.0); PLATELET COUNT 131 X10^3/uL (150.0-450.0); RED BLOOD COUNT 3.91 X10^6/uL (3.5-5.4); RED CELL DISTRIBUTION WIDTH 17.5 % (11.6-16.5); WHITE BLOOD COUNT 6.1 X10^3/uL (3.6-10.0)
[2017-03-10 05:03] LABS: ALANINE AMINOTRANSFERASE 25 Units/L (12-78); ALKALINE PHOSPHATASE 63 Units/L (46-116); ASPARTATE AMINO TRANSFERASE 26 Units/L (15-37); BLOOD UREA NITROGEN 15 mg/dL (7-18); CALCIUM 8.2 mg/dL (8.5-10.1); CARBON DIOXIDE 27.7 mmol/L (21-32); CHLORIDE 95 mmol/L (98-107); COR CA(FOR HYPOALB) 9.8 mg/dL (8.5-10.1); CREATININE 0.69 mg/dL (0.55-1.02); SODIUM 131 mmol/L (136-145); TOTAL PROTEIN 5.5 g/dL (6.4-8.2); eGFR BLACK RACES > 60 (>60); eGFR NON BLACK RACES > 60 (>60)
[2017-03-10] MEDS ORDERED: K-RIDER 10 MEQ/NS 100 ML 10 MEQ/100 ML BAG IV PRN (05:55)
[2017-03-10] MEDS ORDERED: POTASSIUM CHL 40 MEQ/NS 0.45% 500 ML IV PRN (05:55)
[2017-03-10] MEDS ORDERED: POTASSIUM CHL 60 MEQ/NS 0.45% 500 ML IV PRN (05:55)
[2017-03-10] MEDS ORDERED: POTASSIUM CHLORIDE LIQ 20 MEQ UDC PO PRN (05:55)
[2017-03-10] MEDS ORDERED: MAGNESIUM SULFATE 1 GM/100 mL PREMIX 1 GM/100 ML BAG IV PRN (05:55)
[2017-03-10] MEDS: NS 1000 ML 1,000 ML IV SCH ×3 (06:01→20:59)
[2017-03-10] MEDS ORDERED: K-LYTE EFFERVESCENT PO ONE (06:09)
[2017-03-10] MEDS: MAG-OX TAB PO PRN (06:26)
[2017-03-10 07:57] LABS: CREATININE 0.76 mg/dL (0.55-1.02); VANCOMYCIN,TROUGH 13.8 ug/mL (15-20)
[2017-03-10] MEDS ORDERED: PROCALAMINE 3 % 1,000 ML IV SCH (10:00)
[2017-03-10] MEDS ORDERED: PHARMACY CONSULT - TPN XX SCH (10:00)
[2017-03-10] MEDS: MEGACE PO SCH ×2 (10:06→20:58)
[2017-03-10] MEDS: ACTOS PO SCH (10:06)
[2017-03-10] MEDS: MOBIC TAB 15 MG PO SCH (10:06)
[2017-03-10] MEDS: CALAN SR 240 MG PO SCH (10:06)
[2017-03-10] MEDS: ALBUMIN HUMAN 25%- 100ML 100 ML IV SCH (10:07)
[2017-03-10] MEDS: ROCEPHIN VIAL 1 GM 1 GM in NS 100 ML IV + SPIKE MINIBAG* 100 ML IV SCH (10:07)
[2017-03-10] MEDS ORDERED: XYLOCAINE 1 % (PLAIN) ONE ×2 (10:25→11:01)
[2017-03-10] MEDS ORDERED: NS 250 ML IV 250 ML IV ONE (11:15)
[2017-03-10] MEDS ORDERED: VANCOMYCIN HCL 1 GM VIAL ONE (11:16)
[2017-03-10] MEDS: VANCOMYCIN HCL 1 GM VIAL 1 GM in D5W 250 ML IV 250 ML IV SCH (11:17)
--- NOTE | 2017-03-10 11:48 | RAD ---
HISTORY: Central line placement Study: AP portable chest Comparison: 03/07/2017 Findings: [id number] pulmonary vascular congestion is noted. Mild atelectatic change/infiltrate is noted in both lung bases, left greater than right. There may be small pleural effusions. Heart size is b orderline enlarged. A right shoulder prosthesis is present. Moderately severe degenerative changes noted in the visualized left shoulder. A neural stimulator electrode overlies the mid thoracic spine . There has been interval placement of a left-sided central line. The tip is at the cavoatrial junctio n. No evidence of pneumothorax is noted. IMPRESSION: 1. Borderline cardiomegaly with findings of congestive heart failure. 2. Interval placement of a left-sided central line. The tip is at the cavoatrial junction. No comp licating features are noted. No evidence of pneumothorax is noted. 3. Mild bibasilar atelectasis/infiltrate. 4. Possible small bilateral pleural effusions. Reported By:
[2017-03-10] MEDS ORDERED: MARCAINE 0.25% INJ ONE (11:53)
[2017-03-10 12:58] LABS: RBC BODY FLUID 0 Cubic/mm
[2017-03-10 13:43] LABS: WBC BODY FLUID 41225 Cubic/mm
[2017-03-10] MEDS: CLINIMIX 5 %/25 % 1,000 ML with MVI INJ (ADULT) 10 ML, TRACE ELEMENTS INJ 10 ML, TPN EL... IV SCH ×5 (17:14)
[2017-03-10] MEDS: SYNTHROID 100 mcg TAB PO SCH (17:15)
[2017-03-10] MEDS: SNACK - Diabetic Appropriate PO SCH (20:59)
[2017-03-10] MEDS: VANCOMYCIN HCL 1 GM VIAL 1 GM in NS 250 ML IV 250 ML IV SCH (20:59)
--- NOTE | 2017-03-10 21:02 | PCM.PROG ---
Progress Note - Progress Note for Day of Date: 03/09/17 - Subjective Subjective: WAS ADMITTED ON 03/04/17 FOR LEFT LOWER EXTREMITY REDNESS AND EDEMA AND HYPONATREMIA. A CT OF THE LEFT LOWER EXTREMITY REPORTED CONCERNS FOR AN AGE INDETERMINATE DEPRESSED FRACTURE OF THE LEFT CUBOID AT THE CALCANEO CUBOID ARTICULATION, SEVERE OSTEOPENIA, MODERATE OSTEOARTHRITIS INVOLVING THE SUBTALAR AND MULTIPLE MIDFOOT ARTICULATIONS, AND OSTEOCHONDRAL LESION WITH SUBCORTICAL CYST. TODAY, SHE CONTINUES WITH REDNESS AND SWELLING TO THE LOWER EXTREMITY. SHE REPORTS MILD PAIN TO EXTREMITITY. SHE CONTINUES TO RECEIVE IV VANCOMYCIN AND ROCEPHIN DAILY. PLANS ARE FOR PATIENT TO [facility] AND IV THERAPY AFTER CONSULTS WITH PATIENT AND CLEARS HER FOR DISCHARGE. HER VITAL SIGNS THIS MORNING ARE 99.0 -75-20-94%-130/60. LABS WERE OBTAINED. ABNORMAL LAB VALUES INCLUDE THE FOLLOWING : HGB 11.1, HCT 32.9, SODIUM 133, CALCIUM 8.3, CRP 211.40, ESR 37, TOTAL PROTEIN 5.0, ALBUMIN 2.1. TODAY, WE WILL CONTINUE WITH CURRENT PLAN OF CARE. WE PLAN TO FOLLOW UP WITH AM LABS AND CONTINUE TO MONITOR PATIENT. - Past Medical Family Social History Past Med/Fam/Surg Hx: No changes since H&P Allergies: Allergies Sulfa (Sulfonamide Antibiotics) [SULFA] Allergy (Unknown, Verified 03/04/17 18: 57) moxifloxacin Allergy (Verified 03/04/17 18:57) - Review of Systems ROS: No change since H&P - Vital Signs and I&O's Vital Signs: Temperature 98.5 F Pulse Rate [Left Brachial] 80 Pulse Rate [Right Brachial] 76 Pulse Rate [Left] 78 Pulse Rate 75 Respiratory Rate 20 Blood Pressure [Right Arm] 134/59 Blood Pressure [Left Arm] 103/64 Blood Pressure 105/52 O2 Sat by Pulse Oximetry 95 Intake and Output: Intake & Output 03/08/17 03/09/17 03/10/17 03/11/17 11:59 11:59 11:59 11:59 Intake Total 1767 1697 935 690 Balance 1767 1697 935 690 - Physical Exam Oriented: Normal Eyes: Normal Ear: Normal Nose: Normal Throat: Normal Respiratory: Normal Cardiovascular: Normal : Normal Auscultation: Bowel Sounds: Normal Palpation: Normal Tenderness: Normal Skin: Red (LEFT ANKLE/FOOT), Tender Musculoskeletal: Left, Ankle, Foot, Swelling, Tender Psychiatric: Normal Mood Description: Calm Affect: Normal Speech Pattern: Clear, Appropriate - Laboratory and Diagnostics Result Diagrams: 03/10/17 03:45 03/10/17 08:55 Labs: 03/10/17 12:18 Ankle - Left Gram Stain - Final 03/06/17 21:50 Blood Blood Culture - Preliminary 03/06/17 22:45 Blood Blood Culture - Preliminary 03/05/17 16:36 Blood Blood Culture - Final Staphylococcus Aureus 03/05/17 16:48 Blood Blood Culture - Final Staphylococcus Aureus Laboratory WBC 6.1 X10^3/uL (3.6-10.0) 03/10/17 03:45 RBC 3.91 X10^6/uL (3.5-5.4) 03/10/17 03:45 Hgb 10.7 g/dL (12.0-16.0) L 03/10/17 03:45 Hct 31.5 % (36.0-47.0) L 03/10/17 03:45 MCV 80.5 fL (80.0-100.0) 03/10/17 03:45 MCH 27.2 pg (27.0-34.0) 03/10/17 03:45 MCHC 33.8 g/dL (33.0-35.0) 03/10/17 03:45 RDW 17.5 % (11.6-16.5) H 03/10/17 03:45 Plt Count 131 X10^3/uL (150.0-450.0) L 03/10/17 03:45 Plt Count Comment Adequate (ADEQUATE) 03/06/17 03:45 MPV 9.5 fL (7.4-11.0) 03/10/17 03:45 Neut % 74.6 % (42.0-75.0) 03/10/17 03:45 Lymph % 12.8 % (21.0-51.0) L 03/10/17 03:45 [place] % 11.0 % (0.0-13.0) 03/10/17 03:45 Eos % 1.0 % (0.9-2.9) 03/10/17 03:45 Baso % 0.6 % (0.2-1.0) 03/10/17 03:45 Neut # 4.5 x10^3/uL (2.2-4.8) 03/10/17 03:45 Lymph # 0.8 X10^3/uL (1.3-2.9) L 03/10/17 03:45 [place] # 0.7 x10^3/uL (0.3-0.8) 03/10/17 03:45 Eos # 0.1 x10^3/uL (0.0-0.2) 03/10/17 03:45 Baso # 0.0 X10^3/uL (0.0-0.1) 03/10/17 03:45 Absolute Nucleated RBC 0.0 /100WBC 03/10/17 03:45 Total Counted 100 03/06/17 03:45 Neutrophils % (Manual) 83 % (39-76) H 03/06/17 03:45 Band Neutrophils % 8 % (0-10) 03/06/17 03:45 Lymphocytes % (Manual) 6 % (13-43) L 03/06/17 03:45 Monocytes % (Manual) 3 % (4-9) L 03/06/17 03:45 Plt Morphology Comment Normal (NORMAL) 03/06/17 03:45 RBC Morphology Normal (NORMAL) 03/06/17 03:45 ESR 48 MM/HOUR (0-20) H 03/10/17 03:45 Sodium 131 mmol/L (136-145) L 03/10/17 03:45 Corrected Sodium TNP 03/10/17 03:45 Potassium 4.0 mmol/L (3.5-5.1) 03/10/17 08:55 Chloride 95 mmol/L (98-107) L 03/10/17 03:45 Carbon Dioxide 27.7 mmol/L (21-32) 03/10/17 03:45 BUN 15 mg/dL (7-18) 03/10/17 03:45 Creatinine 0.76 mg/dL (0.55-1.02) 03/10/17 07:35 Est GFR (MDRD) Af Amer > 60 (>60) 03/10/17 03:45 Est GFR (MDRD) Non-Af > 60 (>60) 03/10/17 03:45 Glucose 107 mg/dL (65-99) H 03/10/17 03:45 POC Glucose (mg/dL) 222 mg/dL (65-99) H 03/10/17 20:08 Lactic Acid 0.8 mmol/L (0.4-2.0) 03/05/17 16:48 Uric Acid 3.8 mg/dL (2.6-6.0) 03/04/17 18:05 Calcium 8.2 mg/dL (8.5-10.1) L 03/10/17 03:45 Corrected Calcium 9.8 mg/dL (8.5-10.1) 03/10/17 03:45 Magnesium 1.6 mg/dL (1.7-2.9) L 03/10/17 03:45 Total Bilirubin 0.50 mg/dL (0.2-1.0) 03/10/17 03:45 AST 26 Units/L (15-37) 03/10/17 03:45 ALT 25 Units/L (12-78) 03/10/17 03:45 Alkaline Phosphatase 63 Units/L (46-116) 03/10/17 03:45 C-Reactive Protein 190.10 mg/L (0-3.0) H 03/10/17 03:45 Total Protein 5.5 g/dL (6.4-8.2) L 03/10/17 03:45 Albumin 2.0 g/dL (3.4-5.0) L 03/10/17 03:45 Globulin 3.5 g/dL (2.5-4.5) 03/10/17 03:45 Albumin/Globulin Ratio 0.6 Ratio (1.1-2.1) L 03/10/17 03:45 Specimen Type Clean catch urine 03/05/17 03:47 Urine Color Yellow (YELLOW) 03/05/17 03:47 Urine Appearance Clear (CLEAR) 03/05/17 03:47 Urine pH 5.0 (5.0 - 8.0) 03/05/17 03:47 Ur Specific [place] 1.020 (1.000-1.030) 03/05/17 03:47 Urine Protein 2+ (NEGATIVE) 03/05/17 03:47 Urine Glucose (UA) 2+ (NEGATIVE) 03/05/17 03:47 Urine Ketones Negative (NEGATIVE) 03/05/17 03:47 Urine Occult Blood 1+ (NEGATIVE) 03/05/17 03:47 Urine Nitrite Negative (NEGATIVE) 03/05/17 03:47 Urine Bilirubin Negative (NEGATIVE) 03/05/17 03:47 Urine Urobilinogen Normal (NORMAL) 03/05/17 03:47 Ur Leukocyte Esterase 1+ (NEGATIVE) 03/05/17 03:47 Urine RBC 0-3 /HPF (NEGATIVE) 03/05/17 03:47 Urine WBC 1-4 /HPF (NEGATIVE) 03/05/17 03:47 Ur Squamous Epith Cells Few /HPF (NEGATIVE) 03/05/17 03:47 Urine Bacteria Trace /HPF (NEGATIVE) 03/05/17 03:47 Urine Mucus Few /HPF (NEGATIVE) 03/05/17 03:47 Ur Culture Indicated? No/not indicated 03/05/17 03:47 Fluid Source Synovial 03/10/17 12:26 Fluid WBC 72367 Cubic/mm 03/10/17 12:26 Fluid RBC 0 Cubic/mm 03/10/17 12:26 Fluid Crystals None seen (None Seen) 03/10/17 12:26 Vancomycin Trough 13.8 ug/mL (15-20) L 03/10/17 07:35 - Plan (1) Chondrocalcinosis Status: Acute Plan: CONTINUE IV ABX, CONSULT FOR POSSIBLE ASPIRATION OF SYNOVIAL FLUID (2) Pseudogout of ankle Status: Acute Qualifiers: Laterality: left Qualified Code(s): M11.272 - Other chondrocalcinosis, left ankle and foot Plan: CONTINUE IV ABX, CONSULT FOR POSSIBLE ASPIRATION OF SYNOVIAL FLUID
[2017-03-10] MEDS: HumuLIN R SUBCUT PRN (22:49)
[2017-03-11 06:02] LABS: BASOPHILS # (AUTO) 0.1 X10^3/uL (0.0-0.1); BASOPHILS % (AUTO) 0.7 % (0.2-1.0); EOSINOPHILS # (AUTO) 0.1 x10^3/uL (0.0-0.2); EOSINOPHILS % (AUTO) 0.9 % (0.9-2.9); HEMATOCRIT 32.4 % (36.0-47.0); HEMOGLOBIN 10.9 g/dL (12.0-16.0); LYMPHOCYTES # (AUTO) 1.2 X10^3/uL (1.3-2.9); LYMPHOCYTES % (AUTO) 16.6 % (21.0-51.0); MEAN CORPUSCULAR HEMOGLOBIN 27.1 pg (27.0-34.0); MEAN CORPUSCULAR HGB CONC 33.5 g/dL (33.0-35.0); MONOCYTES # (AUTO) 0.7 x10^3/uL (0.3-0.8); MONOCYTES % (AUTO) 10.3 % (0.0-13.0); NEUTROPHILS % (AUTO) 71.5 % (42.0-75.0); PLATELET COUNT 186 X10^3/uL (150.0-450.0); RED BLOOD COUNT 4.01 X10^6/uL (3.5-5.4); RED CELL DISTRIBUTION WIDTH 17.9 % (11.6-16.5)
[2017-03-11 06:24] LABS: ALANINE AMINOTRANSFERASE 21 Units/L (12-78); ALBUMIN 2.5 g/dL (3.4-5.0); ALKALINE PHOSPHATASE 63 Units/L (46-116); ASPARTATE AMINO TRANSFERASE 24 Units/L (15-37); BLOOD UREA NITROGEN 18 mg/dL (7-18); CALCIUM 8.5 mg/dL (8.5-10.1); CARBON DIOXIDE 26.9 mmol/L (21-32); CHLORIDE 97 mmol/L (98-107); COR CA(FOR HYPOALB) 9.7 mg/dL (8.5-10.1); COR NA(FOR HYPERGLY) 134 mmol/L (136-145); CREATININE 0.65 mg/dL (0.55-1.02); SODIUM 132 mmol/L (136-145); TOTAL PROTEIN 5.9 g/dL (6.4-8.2); eGFR BLACK RACES > 60 (>60); eGFR NON BLACK RACES > 60 (>60)
[2017-03-11 06:53] LABS: ERYTHROCYTE SEDIMENTATION RATE 44 MM/HOUR (0-20)
[2017-03-11] MEDS: NS 1000 ML 1,000 ML IV SCH ×2 (09:08→20:36)
[2017-03-11] MEDS: ALBUMIN HUMAN 25%- 100ML 100 ML IV SCH (09:13)
[2017-03-11] MEDS: ROCEPHIN VIAL 1 GM 1 GM in NS 100 ML IV + SPIKE MINIBAG* 100 ML IV SCH (09:14)
[2017-03-11] MEDS: VANCOMYCIN HCL 1 GM VIAL 1 GM in NS 250 ML IV 250 ML IV SCH ×2 (09:16→21:53)
[2017-03-11] MEDS: ACTOS PO SCH (09:17)
[2017-03-11] MEDS: MOBIC TAB 15 MG PO SCH (09:17)
[2017-03-11] MEDS: MEGACE PO SCH ×2 (09:17→20:31)
[2017-03-11] MEDS: CALAN SR 240 MG PO SCH (09:17)
[2017-03-11] MEDS: CLINIMIX 5 %/25 % 1,000 ML with MVI INJ (ADULT) 10 ML, TRACE ELEMENTS INJ 10 ML, TPN EL... IV SCH ×5 (14:39)
--- NOTE | 2017-03-11 16:47 | PCM.PROG ---
Progress Note - Progress Note for Day of Date: 03/10/17 - Subjective Subjective: WAS ADMITTED ON 03/04/17 FOR LEFT LOWER EXTREMITY REDNESS AND EDEMA AND HYPONATREMIA. A CT OF THE LEFT LOWER EXTREMITY REPORTED CONCERNS FOR AN AGE INDETERMINATE DEPRESSED FRACTURE OF THE LEFT CUBOID AT THE [place] CUBOID ARTICULATION, SEVERE OSTEOPENIA, MODERATE OSTEOARTHRITIS INVOLVING THE SUBTALAR AND MULTIPLE MIDFOOT ARTICULATIONS, AND OSTEOCHONDRAL LESION WITH SUBCORTICAL CYST. TODAY, SHE CONTINUES WITH REDNESS AND SWELLING TO THE LOWER EXTREMITY. SHE CONTINUES WITH PAIN TO EXTREMITITY. SHE CONTINUES TO RECEIVE IV VANCOMYCIN AND ROCEPHIN DAILY. PLANS ARE FOR PATIENT TO BE DISCHARGED TO [facility] FOR REHABILITATION AND IV THERAPY. HER VITAL SIGNS THIS MORNING ARE 99.1-78-20-95%-127/59. LABS WERE OBTAINED. ABNORMAL LAB VALUES INCLUDE THE FOLLOWING: HGB 10.7, HCT 31.5, SODIUM 131, POTASSIUM 3.3, CHLORIDE 95, GLUCOSE 107, CALCIUM 8.2, CRP 190.10, ESR 48, TOTAL PROTEIN 5.5, ALBUMIN 2.0. HAS CONSULTED WITH PATIENT AND PLAN TO DRAIN FLUID OFF OF ANKLE TODAY. WE WILL ALSO CONSULT GENERAL SURGERY FOR PLACEMENT OF A CENTRAL LINE DUE TO POOR PERIPHERAL ACCESS AND THE NEED FOR AN EXTENDED COURSE OF ANTIBIOTICS. OTHERWISE, WE WILL CONTINUE WITH CURRENT PLAN OF CARE TODAY. WE PLAN TO FOLLOW UP WITH AM LABS AND CONTINUE TO MONITOR PATIENT. - Past Medical Family Social History Past Med/Fam/Surg Hx: No changes since H&P Allergies: Allergies Sulfa (Sulfonamide Antibiotics) [SULFA] Allergy (Unknown, Verified 03/04/17 18: 57) moxifloxacin Allergy (Verified 03/04/17 18:57) - Review of Systems ROS: No change since H&P - Vital Signs and I&O's Vital Signs: Temperature 98.1 F Pulse Rate [Left Brachial] 80 Pulse Rate [Right Brachial] 76 Pulse Rate [Left] 78 Pulse Rate 75 Respiratory Rate 20 Blood Pressure [Right Arm] 134/59 Blood Pressure [Left Arm] 131/79 Blood Pressure 105/52 O2 Sat by Pulse Oximetry 96 Intake and Output: Intake & Output 03/09/17 03/10/17 03/11/17 03/12/17 11:59 11:59 11:59 11:59 Intake Total 7612 338 6079 240 Balance 8800 294 6777 240 - Physical Exam Oriented: Normal Eyes: Normal Ear: Normal Nose: Normal Throat: Normal Respiratory: Normal Cardiovascular: Normal : Normal Auscultation: Bowel Sounds: Normal Palpation: Normal Tenderness: Normal Skin: Red (LEFT ANKLE/FOOT), Tender Musculoskeletal: Left, Ankle, Foot, Swelling, Tender Psychiatric: Normal Mood Description: Calm Affect: Normal Speech Pattern: Clear, Appropriate - Laboratory and Diagnostics Result Diagrams: 03/11/17 05:31 03/11/17 05:31 Labs: 03/10/17 12:18 Ankle - Left Gram Stain - Final 03/10/17 12:18 Ankle - Left - Preliminary 03/06/17 21:50 Blood Blood Culture - Preliminary 03/06/17 22:45 Blood Blood Culture - Preliminary 03/05/17 16:36 Blood Blood Culture - Final Staphylococcus Aureus 03/05/17 16:48 Blood Blood Culture - Final Staphylococcus Aureus Laboratory WBC 7.0 X10^3/uL (3.6-10.0) 03/11/17 05:31 RBC 4.01 X10^6/uL (3.5-5.4) 03/11/17 05:31 Hgb 10.9 g/dL (12.0-16.0) L 03/11/17 05:31 Hct 32.4 % (36.0-47.0) L 03/11/17 05:31 MCV 81.0 fL (80.0-100.0) 03/11/17 05:31 MCH 27.1 pg (27.0-34.0) 03/11/17 05:31 MCHC 33.5 g/dL (33.0-35.0) 03/11/17 05:31 RDW 17.9 % (11.6-16.5) H 03/11/17 05:31 Plt Count 186 X10^3/uL (150.0-450.0) 03/11/17 05:31 Plt Count Comment Adequate (ADEQUATE) 03/06/17 03:45 MPV 9.0 fL (7.4-11.0) 03/11/17 05:31 Neut % 71.5 % (42.0-75.0) 03/11/17 05:31 Lymph % 16.6 % (21.0-51.0) L 03/11/17 05:31 [place] % 10.3 % (0.0-13.0) 03/11/17 05:31 Eos % 0.9 % (0.9-2.9) 03/11/17 05:31 Baso % 0.7 % (0.2-1.0) 03/11/17 05:31 Neut # 5.0 x10^3/uL (2.2-4.8) H 03/11/17 05:31 Lymph # 1.2 X10^3/uL (1.3-2.9) L 03/11/17 05:31 [place] # 0.7 x10^3/uL (0.3-0.8) 03/11/17 05:31 Eos # 0.1 x10^3/uL (0.0-0.2) 03/11/17 05:31 Baso # 0.1 X10^3/uL (0.0-0.1) 03/11/17 05:31 Absolute Nucleated RBC 0.0 /100WBC 03/11/17 05:31 Total Counted 100 03/06/17 03:45 Neutrophils % (Manual) 83 % (39-76) H 03/06/17 03:45 Band Neutrophils % 8 % (0-10) 03/06/17 03:45 Lymphocytes % (Manual) 6 % (13-43) L 03/06/17 03:45 Monocytes % (Manual) 3 % (4-9) L 03/06/17 03:45 Nucleated RBCs Cancelled 03/11/17 05:31 Atypical Lymphocytes Cancelled 03/11/17 05:31 Blast Cells Cancelled 03/11/17 05:31 Smudge Cells Cancelled 03/11/17 05:31 Toxic Granulation Cancelled 03/11/17 05:31 Dohle Bodies Cancelled 03/11/17 05:31 Bello Rods Cancelled 03/11/17 05:31 Plt Clumps, EDTA Cancelled 03/11/17 05:31 Giant Platelets Cancelled 03/11/17 05:31 Plt Morphology Comment Normal (NORMAL) 03/06/17 03:45 RBC Morphology Normal (NORMAL) 03/06/17 03:45 Dimorphic RBCs Cancelled 03/11/17 05:31 Polychromasia Cancelled 03/11/17 05:31 Hypochromasia Cancelled 03/11/17 05:31 Poikilocytosis Cancelled 03/11/17 05:31 Basophilic Stippling Cancelled 03/11/17 05:31 Anisocytosis Cancelled 03/11/17 05:31 Microcytosis Cancelled 03/11/17 05:31 Macrocytosis Cancelled 03/11/17 05:31 Spherocytes Cancelled 03/11/17 05:31 Pappenheimer Bodies Cancelled 03/11/17 05:31 Sickle Cells Cancelled 03/11/17 05:31 Target Cells Cancelled 03/11/17 05:31 Tear Drop Cells Cancelled 03/11/17 05:31 Ovalocytes Cancelled 03/11/17 05:31 Stomatocytes Cancelled 03/11/17 05:31 Helmet Cells Cancelled 03/11/17 05:31 Heller-Celeste Bodies Cancelled 03/11/17 05:31 [place] Rings Cancelled 03/11/17 05:31 Lisa Cells Cancelled 03/11/17 05:31 Crenated Cell Cancelled 03/11/17 05:31 Acanthocytes (Spur) Cancelled 03/11/17 05:31 Rouleaux Cancelled 03/11/17 05:31 Schistocytes Cancelled 03/11/17 05:31 ESR 44 MM/HOUR (0-20) H 03/11/17 05:31 Sodium 132 mmol/L (136-145) L 03/11/17 05:31 Corrected Sodium 134 mmol/L (136-145) L 03/11/17 05:31 Potassium 3.6 mmol/L (3.5-5.1) 03/11/17 05:31 Chloride 97 mmol/L (98-107) L 03/11/17 05:31 Carbon Dioxide 26.9 mmol/L (21-32) 03/11/17 05:31 BUN 18 mg/dL (7-18) 03/11/17 05:31 Creatinine 0.65 mg/dL (0.55-1.02) 03/11/17 05:31 Est GFR (MDRD) Af Amer > 60 (>60) 03/11/17 05:31 Est GFR (MDRD) Non-Af > 60 (>60) 03/11/17 05:31 Glucose 171 mg/dL (65-99) H 03/11/17 05:31 POC Glucose (mg/dL) 148 mg/dL (65-99) H 03/11/17 11:30 Lactic Acid 0.8 mmol/L (0.4-2.0) 03/05/17 16:48 Uric Acid 3.8 mg/dL (2.6-6.0) 03/04/17 18:05 Calcium 8.5 mg/dL (8.5-10.1) 03/11/17 05:31 Corrected Calcium 9.7 mg/dL (8.5-10.1) 03/11/17 05:31 Magnesium 1.6 mg/dL (1.7-2.9) L 03/10/17 03:45 Total Bilirubin 0.50 mg/dL (0.2-1.0) 03/11/17 05:31 AST 24 Units/L (15-37) 03/11/17 05:31 ALT 21 Units/L (12-78) 03/11/17 05:31 Alkaline Phosphatase 63 Units/L (46-116) 03/11/17 05:31 C-Reactive Protein 146.40 mg/L (0-3.0) H 03/11/17 05:31 Total Protein 5.9 g/dL (6.4-8.2) L 03/11/17 05:31 Albumin 2.5 g/dL (3.4-5.0) L 03/11/17 05:31 Globulin 3.4 g/dL (2.5-4.5) 03/11/17 05:31 Albumin/Globulin Ratio 0.7 Ratio (1.1-2.1) L 03/11/17 05:31 Specimen Type Clean catch urine 03/05/17 03:47 Urine Color Yellow (YELLOW) 03/05/17 03:47 Urine Appearance Clear (CLEAR) 03/05/17 03:47 Urine pH 5.0 (5.0 - 8.0) 03/05/17 03:47 Ur Specific [place] 1.020 (1.000-1.030) 03/05/17 03:47 Urine Protein 2+ (NEGATIVE) 03/05/17 03:47 Urine Glucose (UA) 2+ (NEGATIVE) 03/05/17 03:47 Urine Ketones Negative (NEGATIVE) 03/05/17 03:47 Urine Occult Blood 1+ (NEGATIVE) 03/05/17 03:47 Urine Nitrite Negative (NEGATIVE) 03/05/17 03:47 Urine Bilirubin Negative (NEGATIVE) 03/05/17 03:47 Urine Urobilinogen Normal (NORMAL) 03/05/17 03:47 Ur Leukocyte Esterase 1+ (NEGATIVE) 03/05/17 03:47 Urine RBC 0-3 /HPF (NEGATIVE) 03/05/17 03:47 Urine WBC 1-4 /HPF (NEGATIVE) 03/05/17 03:47 Ur Squamous Epith Cells Few /HPF (NEGATIVE) 03/05/17 03:47 Urine Bacteria Trace /HPF (NEGATIVE) 03/05/17 03:47 Urine Mucus Few /HPF (NEGATIVE) 03/05/17 03:47 Ur Culture Indicated? No/not indicated 03/05/17 03:47 Fluid Source Synovial 03/10/17 12:26 Fluid WBC 06591 Cubic/mm 03/10/17 12:26 Fluid RBC 0 Cubic/mm 03/10/17 12:26 Fluid Crystals None seen (None Seen) 03/10/17 12:26 Vancomycin Trough 13.8 ug/mL (15-20) L 03/10/17 07:35 - Plan (1) Chondrocalcinosis Status: Acute Plan: CONTINUE IV ABX, CONSULT FOR POSSIBLE ASPIRATION OF SYNOVIAL FLUID (2) Pseudogout of ankle Status: Acute Qualifiers: Laterality: left Qualified Code(s): M11.272 - Other chondrocalcinosis, left ankle and foot Plan: CONTINUE IV ABX, CONSULT FOR POSSIBLE ASPIRATION OF SYNOVIAL FLUID
[2017-03-11] MEDS: SYNTHROID 100 mcg TAB PO SCH (17:27)
[2017-03-11] MEDS ORDERED: DUONEB 0.5 MG/3 MG ONE (18:32)
[2017-03-11] MEDS ORDERED: DUONEB 0.5 MG/3 MG NEB SCH (18:40)
[2017-03-11] MEDS: DUONEB 0.5 MG/3 MG NEB SCH (20:20)
[2017-03-11] MEDS: SNACK - Diabetic Appropriate PO SCH (20:36)
[2017-03-11 21:25] LABS: CREATININE 0.57 mg/dL (0.55-1.02); VANCOMYCIN,TROUGH 15.4 ug/mL (15-20)
--- NOTE | 2017-03-11 21:52 | PCM.PROG ---
Progress Note - Progress Note for Day of Date: 03/11/17 - Subjective Subjective: WAS ADMITTED ON 03/04/17 FOR LEFT LOWER EXTREMITY REDNESS AND EDEMA AND HYPONATREMIA. A CT OF THE LEFT LOWER EXTREMITY REPORTED CONCERNS FOR AN AGE INDETERMINATE DEPRESSED FRACTURE OF THE LEFT CUBOID AT THE [place] CUBOID ARTICULATION, SEVERE OSTEOPENIA, MODERATE OSTEOARTHRITIS INVOLVING THE SUBTALAR AND MULTIPLE MIDFOOT ARTICULATIONS, AND OSTEOCHONDRAL LESION WITH SUBCORTICAL CYST. TODAY, SHE CONTINUES WITH REDNESS AND SWELLING TO THE LOWER EXTREMITY. TODAY, SHE CONTINUES WITH PAIN TO EXTREMITITY. SHE CONTINUES TO RECEIVE IV VANCOMYCIN AND ROCEPHIN DAILY. TOOK PATIENT TO THE ER YESTERDAY TO DRAIN FLUIDS OFF OF ANKLE. DRESSING NOTED TO LEFT ANKLE TODAY IS DRY AND INTACT. HER VITAL SIGNS THIS MORNING ARE 98.7-90-20-96%-171/72. ESR HAS DECREASED TO 44. CRP DECREASED TO 146.40. ALSO PLACED A CENTRAL LINE YESTERDAY FOR USED DUE TO AN EXTENDED COURSE OF ANTIBIOTIC THERAPY AFTER DISCHARGE. TODAY, WE WILL CONTINUE WITH CURRENT PLAN OF CARE. WE PLAN TO FOLLOW UP WITH AM LABS AND CONTINUE TO MONITOR PATIENT. WE PLAN FOR TRANSITION TO [facility] FOR PHYSICAL THERAPY AND IV THERAPY ON MONDAY. - Past Medical Family Social History Past Med/Fam/Surg Hx: No changes since H&P Allergies: Allergies Sulfa (Sulfonamide Antibiotics) [SULFA] Allergy (Unknown, Verified 03/04/17 18: 57) moxifloxacin Allergy (Verified 03/04/17 18:57) - Review of Systems ROS: No change since H&P - Vital Signs and I&O's Vital Signs: Temperature 98.1 F Pulse Rate [Left Brachial] 80 Pulse Rate [Right Brachial] 76 Pulse Rate [Left] 78 Pulse Rate 84 Respiratory Rate 20 Blood Pressure [Right Arm] 134/59 Blood Pressure [Left Arm] 131/79 Blood Pressure 105/52 O2 Sat by Pulse Oximetry 93 Intake and Output: Intake & Output 03/09/17 03/10/17 03/11/17 03/12/17 11:59 11:59 11:59 11:59 Intake Total 6706 107 9974 990 Balance 5931 356 8513 990 - Physical Exam Oriented: Normal Eyes: Normal Ear: Normal Nose: Normal Throat: Normal Respiratory: Normal Cardiovascular: Normal : Normal Auscultation: Bowel Sounds: Normal Palpation: Normal Tenderness: Normal Skin: Red (LEFT ANKLE/FOOT), Tender Musculoskeletal: Left, Ankle, Foot, Swelling, Tender Psychiatric: Normal Mood Description: Calm Affect: Normal Speech Pattern: Clear, Appropriate - Laboratory and Diagnostics Result Diagrams: 03/11/17 05:31 03/11/17 20:58 Labs: 03/10/17 12:18 Ankle - Left Gram Stain - Final 03/10/17 12:18 Ankle - Left - Preliminary 03/06/17 21:50 Blood Blood Culture - Preliminary 03/06/17 22:45 Blood Blood Culture - Preliminary 03/05/17 16:36 Blood Blood Culture - Final Staphylococcus Aureus 03/05/17 16:48 Blood Blood Culture - Final Staphylococcus Aureus Laboratory WBC 7.0 X10^3/uL (3.6-10.0) 03/11/17 05:31 RBC 4.01 X10^6/uL (3.5-5.4) 03/11/17 05:31 Hgb 10.9 g/dL (12.0-16.0) L 03/11/17 05:31 Hct 32.4 % (36.0-47.0) L 03/11/17 05:31 MCV 81.0 fL (80.0-100.0) 03/11/17 05:31 MCH 27.1 pg (27.0-34.0) 03/11/17 05:31 MCHC 33.5 g/dL (33.0-35.0) 03/11/17 05:31 RDW 17.9 % (11.6-16.5) H 03/11/17 05:31 Plt Count 186 X10^3/uL (150.0-450.0) 03/11/17 05:31 Plt Count Comment Adequate (ADEQUATE) 03/06/17 03:45 MPV 9.0 fL (7.4-11.0) 03/11/17 05:31 Neut % 71.5 % (42.0-75.0) 03/11/17 05:31 Lymph % 16.6 % (21.0-51.0) L 03/11/17 05:31 [place] % 10.3 % (0.0-13.0) 03/11/17 05:31 Eos % 0.9 % (0.9-2.9) 03/11/17 05:31 Baso % 0.7 % (0.2-1.0) 03/11/17 05:31 Neut # 5.0 x10^3/uL (2.2-4.8) H 03/11/17 05:31 Lymph # 1.2 X10^3/uL (1.3-2.9) L 03/11/17 05:31 [place] # 0.7 x10^3/uL (0.3-0.8) 03/11/17 05:31 Eos # 0.1 x10^3/uL (0.0-0.2) 03/11/17 05:31 Baso # 0.1 X10^3/uL (0.0-0.1) 03/11/17 05:31 Absolute Nucleated RBC 0.0 /100WBC 03/11/17 05:31 Total Counted 100 03/06/17 03:45 Neutrophils % (Manual) 83 % (39-76) H 03/06/17 03:45 Band Neutrophils % 8 % (0-10) 03/06/17 03:45 Lymphocytes % (Manual) 6 % (13-43) L 03/06/17 03:45 Monocytes % (Manual) 3 % (4-9) L 03/06/17 03:45 Nucleated RBCs Cancelled 03/11/17 05:31 Atypical Lymphocytes Cancelled 03/11/17 05:31 Blast Cells Cancelled 03/11/17 05:31 Smudge Cells Cancelled 03/11/17 05:31 Toxic Granulation Cancelled 03/11/17 05:31 Dohle Bodies Cancelled 03/11/17 05:31 Bello Rods Cancelled 03/11/17 05:31 Plt Clumps, EDTA Cancelled 03/11/17 05:31 Giant Platelets Cancelled 03/11/17 05:31 Plt Morphology Comment Normal (NORMAL) 03/06/17 03:45 RBC Morphology Normal (NORMAL) 03/06/17 03:45 Dimorphic RBCs Cancelled 03/11/17 05:31 Polychromasia Cancelled 03/11/17 05:31 Hypochromasia Cancelled 03/11/17 05:31 Poikilocytosis Cancelled 03/11/17 05:31 Basophilic Stippling Cancelled 03/11/17 05:31 Anisocytosis Cancelled 03/11/17 05:31 Microcytosis Cancelled 03/11/17 05:31 Macrocytosis Cancelled 03/11/17 05:31 Spherocytes Cancelled 03/11/17 05:31 Pappenheimer Bodies Cancelled 03/11/17 05:31 Sickle Cells Cancelled 03/11/17 05:31 Target Cells Cancelled 03/11/17 05:31 Tear Drop Cells Cancelled 03/11/17 05:31 Ovalocytes Cancelled 03/11/17 05:31 Stomatocytes Cancelled 03/11/17 05:31 Helmet Cells Cancelled 03/11/17 05:31 [place] Bodies Cancelled 03/11/17 05:31 [place] Rings Cancelled 03/11/17 05:31 [place] Cells Cancelled 03/11/17 05:31 Crenated Cell Cancelled 03/11/17 05:31 Acanthocytes (Spur) Cancelled 03/11/17 05:31 Rouleaux Cancelled 03/11/17 05:31 Schistocytes Cancelled 03/11/17 05:31 ESR 44 MM/HOUR (0-20) H 03/11/17 05:31 Sodium 132 mmol/L (136-145) L 03/11/17 05:31 Corrected Sodium 134 mmol/L (136-145) L 03/11/17 05:31 Potassium 3.6 mmol/L (3.5-5.1) 03/11/17 05:31 Chloride 97 mmol/L (98-107) L 03/11/17 05:31 Carbon Dioxide 26.9 mmol/L (21-32) 03/11/17 05:31 BUN 18 mg/dL (7-18) 03/11/17 05:31 Creatinine 0.57 mg/dL (0.55-1.02) 03/11/17 20:58 Est GFR (MDRD) Af Amer > 60 (>60) 03/11/17 05:31 Est GFR (MDRD) Non-Af > 60 (>60) 03/11/17 05:31 Glucose 171 mg/dL (65-99) H 03/11/17 05:31 POC Glucose (mg/dL) 169 mg/dL (65-99) H 03/11/17 17:24 Lactic Acid 0.8 mmol/L (0.4-2.0) 03/05/17 16:48 Uric Acid 3.8 mg/dL (2.6-6.0) 03/04/17 18:05 Calcium 8.5 mg/dL (8.5-10.1) 03/11/17 05:31 Corrected Calcium 9.7 mg/dL (8.5-10.1) 03/11/17 05:31 Magnesium 1.6 mg/dL (1.7-2.9) L 03/10/17 03:45 Total Bilirubin 0.50 mg/dL (0.2-1.0) 03/11/17 05:31 AST 24 Units/L (15-37) 03/11/17 05:31 ALT 21 Units/L (12-78) 03/11/17 05:31 Alkaline Phosphatase 63 Units/L (46-116) 03/11/17 05:31 C-Reactive Protein 146.40 mg/L (0-3.0) H 03/11/17 05:31 Total Protein 5.9 g/dL (6.4-8.2) L 03/11/17 05:31 Albumin 2.5 g/dL (3.4-5.0) L 03/11/17 05:31 Globulin 3.4 g/dL (2.5-4.5) 03/11/17 05:31 Albumin/Globulin Ratio 0.7 Ratio (1.1-2.1) L 03/11/17 05:31 Specimen Type Clean catch urine 03/05/17 03:47 Urine Color Yellow (YELLOW) 03/05/17 03:47 Urine Appearance Clear (CLEAR) 03/05/17 03:47 Urine pH 5.0 (5.0 - 8.0) 03/05/17 03:47 Ur Specific [place] 1.020 (1.000-1.030) 03/05/17 03:47 Urine Protein 2+ (NEGATIVE) 03/05/17 03:47 Urine Glucose (UA) 2+ (NEGATIVE) 03/05/17 03:47 Urine Ketones Negative (NEGATIVE) 03/05/17 03:47 Urine Occult Blood 1+ (NEGATIVE) 03/05/17 03:47 Urine Nitrite Negative (NEGATIVE) 03/05/17 03:47 Urine Bilirubin Negative (NEGATIVE) 03/05/17 03:47 Urine Urobilinogen Normal (NORMAL) 03/05/17 03:47 Ur Leukocyte Esterase 1+ (NEGATIVE) 03/05/17 03:47 Urine RBC 0-3 /HPF (NEGATIVE) 03/05/17 03:47 Urine WBC 1-4 /HPF (NEGATIVE) 03/05/17 03:47 Ur Squamous Epith Cells Few /HPF (NEGATIVE) 03/05/17 03:47 Urine Bacteria Trace /HPF (NEGATIVE) 03/05/17 03:47 Urine Mucus Few /HPF (NEGATIVE) 03/05/17 03:47 Ur Culture Indicated? No/not indicated 03/05/17 03:47 Fluid Source Synovial 03/10/17 12:26 Fluid WBC 24810 Cubic/mm 03/10/17 12:26 Fluid RBC 0 Cubic/mm 03/10/17 12:26 Fluid Crystals None seen (None Seen) 03/10/17 12:26 Vancomycin Trough 15.4 ug/mL (15-20) 03/11/17 20:58 - Plan (1) Chondrocalcinosis Status: Acute Plan: CONTINUE IV ABX, WOUND CARE, CONTINUE TO MONITOR (2) Pseudogout of ankle Status: Acute Qualifiers: Laterality: left Qualified Code(s): M11.272 - Other chondrocalcinosis, left ankle and foot Plan: CONTINUE IV ABX, CONTINUE WOUND CARE, CONTINUE TO MONITOR
[2017-03-12] MEDS: DUONEB 0.5 MG/3 MG NEB SCH ×6 (01:45→20:55)
[2017-03-12 05:30] LABS: BASOPHILS % (AUTO) 0.8 % (0.2-1.0); EOSINOPHILS # (AUTO) 0.1 x10^3/uL (0.0-0.2); EOSINOPHILS % (AUTO) 1.6 % (0.9-2.9); HEMATOCRIT 29.6 % (36.0-47.0); HEMOGLOBIN 10.1 g/dL (12.0-16.0); LYMPHOCYTES # (AUTO) 0.7 X10^3/uL (1.3-2.9); LYMPHOCYTES % (AUTO) 12.4 % (21.0-51.0); MEAN CORPUSCULAR HEMOGLOBIN 27.6 pg (27.0-34.0); MEAN CORPUSCULAR HGB CONC 34.3 g/dL (33.0-35.0); MEAN CORPUSCULAR VOLUME 80.5 fL (80.0-100.0); MONOCYTES # (AUTO) 0.7 x10^3/uL (0.3-0.8); MONOCYTES % (AUTO) 11.4 % (0.0-13.0); NEUTROPHILS # (AUTO) 4.4 x10^3/uL (2.2-4.8); NEUTROPHILS % (AUTO) 73.8 % (42.0-75.0); PLATELET COUNT 218 X10^3/uL (150.0-450.0); RED BLOOD COUNT 3.67 X10^6/uL (3.5-5.4); RED CELL DISTRIBUTION WIDTH 17.8 % (11.6-16.5)
[2017-03-12 05:44] LABS: ALANINE AMINOTRANSFERASE 21 Units/L (12-78); ALBUMIN 2.4 g/dL (3.4-5.0); ALKALINE PHOSPHATASE 52 Units/L (46-116); ASPARTATE AMINO TRANSFERASE 24 Units/L (15-37); BLOOD UREA NITROGEN 14 mg/dL (7-18); CALCIUM 8.4 mg/dL (8.5-10.1); CARBON DIOXIDE 25.5 mmol/L (21-32); CHLORIDE 98 mmol/L (98-107); COR CA(FOR HYPOALB) 9.7 mg/dL (8.5-10.1); COR NA(FOR HYPERGLY) 133 mmol/L (136-145); CREATININE 0.44 mg/dL (0.55-1.02); SODIUM 132 mmol/L (136-145); TOTAL PROTEIN 5.6 g/dL (6.4-8.2); eGFR BLACK RACES > 60 (>60); eGFR NON BLACK RACES > 60 (>60)
[2017-03-12] MEDS ORDERED: POTASSIUM CHLORIDE LIQ 20 MEQ UDC PO PRN (05:54)
[2017-03-12] MEDS ORDERED: MAG-OX TAB PO PRN (05:54)
[2017-03-12] MEDS ORDERED: POTASSIUM CHL 60 MEQ/NS 0.45% 500 ML IV PRN (05:54)
[2017-03-12] MEDS ORDERED: K-RIDER 10 MEQ/NS 100 ML 10 MEQ/100 ML BAG IV PRN (05:54)
[2017-03-12] MEDS ORDERED: K-LYTE EFFERVESCENT PO PRN (05:54)
[2017-03-12] MEDS ORDERED: POTASSIUM CHL 40 MEQ/NS 0.45% 500 ML IV PRN (05:54)
[2017-03-12] MEDS ORDERED: MAGNESIUM SULFATE 1 GM/100 mL PREMIX 1 GM/100 ML BAG IV PRN (05:54)
[2017-03-12 06:03] LABS: BAND NEUTROPHILS % 6 % (0-10); PLATELET MORPHOLOGY COMMENT NORMAL (NORMAL)
[2017-03-12] MEDS: K-LYTE EFFERVESCENT PO PRN (06:03)
[2017-03-12 06:04] LABS: HYPOCHROMASIA 1+
[2017-03-12 06:23] LABS: ERYTHROCYTE SEDIMENTATION RATE 32 MM/HOUR (0-20)
[2017-03-12] MEDS: MAG-OX TAB PO PRN (08:48)
[2017-03-12] MEDS: CLINIMIX 5 %/25 % 1,000 ML with MVI INJ (ADULT) 10 ML, TRACE ELEMENTS INJ 10 ML, TPN EL... IV SCH ×5 (08:49)
[2017-03-12] MEDS: ROCEPHIN VIAL 1 GM 1 GM in NS 100 ML IV + SPIKE MINIBAG* 100 ML IV SCH (08:49)
[2017-03-12] MEDS: NS 1000 ML 1,000 ML IV SCH ×2 (08:50→12:25)
[2017-03-12] MEDS: ALBUMIN HUMAN 25%- 100ML 100 ML IV SCH (08:50)
[2017-03-12] MEDS: ACTOS PO SCH (08:52)
[2017-03-12] MEDS: COLACE CAP 100 MG PO PRN (08:52)
[2017-03-12] MEDS: CALAN SR 240 MG PO SCH (08:52)
[2017-03-12] MEDS: MOBIC TAB 15 MG PO SCH (08:52)
[2017-03-12] MEDS: MEGACE PO SCH ×2 (08:53→21:57)
[2017-03-12] MEDS: VANCOMYCIN HCL 1 GM VIAL 1 GM in NS 250 ML IV 250 ML IV SCH ×2 (12:02→21:57)
--- NOTE | 2017-03-12 15:14 | RAD ---
Examination: AP chest History: Line placement Comparison reference 03/10/2017 Findings: Persistent cardiac enlargement with increasing pulmonary vascular dilatation and increasing bibasal densities consistent with edema and suspect pleural effusions, right greater than left. The upper lungs are relatively clear. There is a left subclavian catheter terminating in the SVC. Impression: Compared to examination of 2 days earlier, stable appearance of left subclavian catheter. Increasing pulmonary congestion and bibasal pleural -parenchymal densities consistent with CHF, jacob a and fluid. Reported By:
[2017-03-12] MEDS: SYNTHROID 100 mcg TAB PO SCH (15:50)
[2017-03-12] MEDS: HumuLIN R SUBCUT PRN (16:54)
[2017-03-12] MEDS: SNACK - Diabetic Appropriate PO SCH (21:56)
[2017-03-13] MEDS: DUONEB 0.5 MG/3 MG NEB SCH ×6 (01:17→21:03)
[2017-03-13] MEDS: NORCO 5/325 MG TAB PO PRN (02:14)
[2017-03-13] MEDS: NS 1000 ML 1,000 ML IV SCH (05:38)
[2017-03-13] MEDS: CLINIMIX 5 %/25 % 1,000 ML with MVI INJ (ADULT) 10 ML, TRACE ELEMENTS INJ 10 ML, TPN EL... IV SCH ×5 (05:39)
[2017-03-13 05:51] LABS: ALANINE AMINOTRANSFERASE 20 Units/L (12-78); ALBUMIN 2.6 g/dL (3.4-5.0); ALKALINE PHOSPHATASE 51 Units/L (46-116); ASPARTATE AMINO TRANSFERASE 24 Units/L (15-37); BLOOD UREA NITROGEN 16 mg/dL (7-18); CALCIUM 8.5 mg/dL (8.5-10.1); CARBON DIOXIDE 28.1 mmol/L (21-32); CHLORIDE 98 mmol/L (98-107); COR CA(FOR HYPOALB) 9.6 mg/dL (8.5-10.1); COR NA(FOR HYPERGLY) 136 mmol/L (136-145); CREATININE 0.61 mg/dL (0.55-1.02); MAGNESIUM 1.6 mg/dL (1.7-2.9); SODIUM 133 mmol/L (136-145); TOTAL PROTEIN 5.4 g/dL (6.4-8.2); eGFR BLACK RACES > 60 (>60); eGFR NON BLACK RACES > 60 (>60)
[2017-03-13 05:54] LABS: BASOPHILS % (AUTO) 0.6 % (0.2-1.0); EOSINOPHILS # (AUTO) 0.1 x10^3/uL (0.0-0.2); EOSINOPHILS % (AUTO) 1.4 % (0.9-2.9); HEMATOCRIT 29.1 % (36.0-47.0); LYMPHOCYTES # (AUTO) 0.7 X10^3/uL (1.3-2.9); LYMPHOCYTES % (AUTO) 8.5 % (21.0-51.0); MEAN CORPUSCULAR HEMOGLOBIN 27.7 pg (27.0-34.0); MEAN CORPUSCULAR HGB CONC 34.4 g/dL (33.0-35.0); MEAN CORPUSCULAR VOLUME 80.5 fL (80.0-100.0); MEAN PLATELET VOLUME 9.1 fL (7.4-11.0); MONOCYTES # (AUTO) 0.8 x10^3/uL (0.3-0.8); MONOCYTES % (AUTO) 10.3 % (0.0-13.0); NEUTROPHILS # (AUTO) 6.2 x10^3/uL (2.2-4.8); NEUTROPHILS % (AUTO) 79.2 % (42.0-75.0); PLATELET COUNT 249 X10^3/uL (150.0-450.0); RED BLOOD COUNT 3.62 X10^6/uL (3.5-5.4); RED CELL DISTRIBUTION WIDTH 17.6 % (11.6-16.5); WHITE BLOOD COUNT 7.9 X10^3/uL (3.6-10.0)
[2017-03-13 06:35] LABS: ERYTHROCYTE SEDIMENTATION RATE 23 MM/HOUR (0-20)
[2017-03-13] MEDS: HumuLIN R SUBCUT PRN ×2 (06:47→22:14)
[2017-03-13] MEDS: MAG-OX TAB PO PRN (06:49)
[2017-03-13] MEDS: K-LYTE EFFERVESCENT PO PRN (06:49)
[2017-03-13] MEDS: ALBUMIN HUMAN 25%- 100ML 100 ML IV SCH (09:20)
[2017-03-13] MEDS: MOBIC TAB 15 MG PO SCH (09:23)
[2017-03-13] MEDS: ACTOS PO SCH (09:23)
[2017-03-13] MEDS: CALAN SR 240 MG PO SCH (09:23)
[2017-03-13] MEDS: MEGACE PO SCH ×2 (09:24→20:42)
[2017-03-13] MEDS: ROCEPHIN VIAL 1 GM 1 GM in NS 100 ML IV + SPIKE MINIBAG* 100 ML IV SCH (10:20)
--- NOTE | 2017-03-13 12:36 | PCM.PROG ---
Progress Note - Progress Note for Day of Date: 03/12/17 - Subjective Subjective: WAS ADMITTED ON 03/04/17 FOR LEFT LOWER EXTREMITY REDNESS AND EDEMA AND HYPONATREMIA. A CT OF THE LEFT LOWER EXTREMITY REPORTED CONCERNS FOR AN AGE INDETERMINATE DEPRESSED FRACTURE OF THE LEFT CUBOID AT THE [place] CUBOID ARTICULATION, SEVERE OSTEOPENIA, MODERATE OSTEOARTHRITIS INVOLVING THE SUBTALAR AND MULTIPLE MIDFOOT ARTICULATIONS, AND OSTEOCHONDRAL LESION WITH SUBCORTICAL CYST. SYNOVIAL FLUID WAS ASPIRATED FROM THE LEFT FOOT BY ON 03/10/2017. TODAY, SHE CONTINUES WITH REDNESS AND SWELLING TO THE LOWER EXTREMITY WELL PAIN. SHE CONTINUES TO RECEIVE IV VANCOMYCIN AND ROCEPHIN DAILY. DRESSING TO LEFT ANKLE IS DRY AND INTACT. HER VITAL SIGNS THIS MORNING ARE 98.6-83-20-96%-136/60. ESR HAS DECREASED TO 32. CRP DECREASED TO 103.30. POTASSIUM IS LOW AT 3.0. OTHERWISE, SHE IS HEMODYNAMICALLY STABLE. TODAY, WE WILL CONTINUE WITH CURRENT PLAN OF CARE. WE PLAN TO FOLLOW UP WITH AM LABS AND CONTINUE TO MONITOR PATIENT. WE PLAN FOR TRANSITION TO [facility] FOR PHYSICAL THERAPY AND IV THERAPY ON TOMORROW. - Past Medical Family Social History Past Med/Fam/Surg Hx: No changes since H&P Allergies: Allergies Sulfa (Sulfonamide Antibiotics) [SULFA] Allergy (Unknown, Verified 03/04/17 18: 57) moxifloxacin Allergy (Verified 03/04/17 18:57) - Review of Systems ROS: No change since H&P - Vital Signs and I&O's Vital Signs: Temperature 97.8 F Pulse Rate [Left Brachial] 104 Pulse Rate [Right Brachial] 76 Pulse Rate [Left] 78 Pulse Rate 95 Respiratory Rate 20 Blood Pressure [Right Arm] 134/59 Blood Pressure [Left Arm] 121/75 Blood Pressure 105/52 O2 Sat by Pulse Oximetry 96 Intake and Output: Intake & Output 03/11/17 03/12/17 03/13/17 03/14/17 11:59 11:59 11:59 11:59 Intake Total 1835 1900 2323 Balance 1835 1900 2323 - Physical Exam Oriented: Normal Eyes: Normal Ear: Normal Nose: Normal Throat: Normal Respiratory: Normal Cardiovascular: Normal : Normal Auscultation: Bowel Sounds: Normal Palpation: Normal Tenderness: Normal Skin: Red (LEFT ANKLE/FOOT), Tender Musculoskeletal: Left, Ankle, Foot, Swelling, Tender Psychiatric: Normal Mood Description: Calm Affect: Normal Speech Pattern: Clear - Laboratory and Diagnostics Result Diagrams: 03/13/17 04:05 03/13/17 08:52 Labs: 03/10/17 12:18 Ankle - Left Gram Stain - Final 03/10/17 12:18 Ankle - Left - Preliminary 03/06/17 21:50 Blood Blood Culture - Final 03/06/17 22:45 Blood Blood Culture - Final 03/05/17 16:36 Blood Blood Culture - Final Staphylococcus Aureus 03/05/17 16:48 Blood Blood Culture - Final Staphylococcus Aureus Laboratory WBC 7.9 X10^3/uL (3.6-10.0) 03/13/17 04:05 RBC 3.62 X10^6/uL (3.5-5.4) 03/13/17 04:05 Hgb 10.0 g/dL (12.0-16.0) L 03/13/17 04:05 Hct 29.1 % (36.0-47.0) L 03/13/17 04:05 MCV 80.5 fL (80.0-100.0) 03/13/17 04:05 MCH 27.7 pg (27.0-34.0) 03/13/17 04:05 MCHC 34.4 g/dL (33.0-35.0) 03/13/17 04:05 RDW 17.6 % (11.6-16.5) H 03/13/17 04:05 Plt Count 249 X10^3/uL (150.0-450.0) 03/13/17 04:05 Plt Count Comment Adequate (ADEQUATE) 03/12/17 04:10 MPV 9.1 fL (7.4-11.0) 03/13/17 04:05 Neut % 79.2 % (42.0-75.0) H 03/13/17 04:05 Lymph % 8.5 % (21.0-51.0) L 03/13/17 04:05 [place] % 10.3 % (0.0-13.0) 03/13/17 04:05 Eos % 1.4 % (0.9-2.9) 03/13/17 04:05 Baso % 0.6 % (0.2-1.0) 03/13/17 04:05 Neut # 6.2 x10^3/uL (2.2-4.8) H 03/13/17 04:05 Lymph # 0.7 X10^3/uL (1.3-2.9) L 03/13/17 04:05 [place] # 0.8 x10^3/uL (0.3-0.8) 03/13/17 04:05 Eos # 0.1 x10^3/uL (0.0-0.2) 03/13/17 04:05 Baso # 0.0 X10^3/uL (0.0-0.1) 03/13/17 04:05 Absolute Nucleated RBC 0.0 /100WBC 03/13/17 04:05 Total Counted 100 03/12/17 04:10 Neutrophils % (Manual) 66 % (39-76) 03/12/17 04:10 Band Neutrophils % 6 % (0-10) 03/12/17 04:10 Lymphocytes % (Manual) 16 % (13-43) 03/12/17 04:10 Monocytes % (Manual) 10 % (4-9) H 03/12/17 04:10 Eosinophils % (Manual) 2 % (0-6) 03/12/17 04:10 Nucleated RBCs Cancelled 03/11/17 05:31 Atypical Lymphocytes Cancelled 03/11/17 05:31 Blast Cells Cancelled 03/11/17 05:31 Smudge Cells Cancelled 03/11/17 05:31 Toxic Granulation Cancelled 03/11/17 05:31 Dohle Bodies Cancelled 03/11/17 05:31 Bello Rods Cancelled 03/11/17 05:31 Plt Clumps, EDTA Cancelled 03/11/17 05:31 Giant Platelets Cancelled 03/11/17 05:31 Plt Morphology Comment Normal (NORMAL) 03/12/17 04:10 RBC Morphology Abnormal (NORMAL) A 03/12/17 04:10 Dimorphic RBCs Cancelled 03/11/17 05:31 Polychromasia Cancelled 03/11/17 05:31 Hypochromasia 1+ A 03/12/17 04:10 Poikilocytosis Cancelled 03/11/17 05:31 Basophilic Stippling Cancelled 03/11/17 05:31 Anisocytosis Cancelled 03/11/17 05:31 Microcytosis Cancelled 03/11/17 05:31 Macrocytosis Cancelled 03/11/17 05:31 Spherocytes Cancelled 03/11/17 05:31 Pappenheimer Bodies Cancelled 03/11/17 05:31 Sickle Cells Cancelled 03/11/17 05:31 Target Cells Cancelled 03/11/17 05:31 Tear Drop Cells Cancelled 03/11/17 05:31 Ovalocytes Cancelled 03/11/17 05:31 Stomatocytes Cancelled 03/11/17 05:31 Helmet Cells Cancelled 03/11/17 05:31 Heller-Jansen Bodies Cancelled 03/11/17 05:31 [place] Rings Cancelled 03/11/17 05:31 Lisa Cells Cancelled 03/11/17 05:31 Crenated Cell Cancelled 03/11/17 05:31 Acanthocytes (Spur) Cancelled 03/11/17 05:31 Rouleaux Cancelled 03/11/17 05:31 Schistocytes Cancelled 03/11/17 05:31 ESR 23 MM/HOUR (0-20) H 03/13/17 04:05 Sodium 133 mmol/L (136-145) L 03/13/17 04:05 Corrected Sodium 136 mmol/L (136-145) 03/13/17 04:05 Potassium 3.5 mmol/L (3.5-5.1) 03/13/17 08:52 Chloride 98 mmol/L (98-107) 03/13/17 04:05 Carbon Dioxide 28.1 mmol/L (21-32) 03/13/17 04:05 BUN 16 mg/dL (7-18) 03/13/17 04:05 Creatinine 0.61 mg/dL (0.55-1.02) 03/13/17 04:05 Est GFR (MDRD) Af Amer > 60 (>60) 03/13/17 04:05 Est GFR (MDRD) Non-Af > 60 (>60) 03/13/17 04:05 Glucose 221 mg/dL (65-99) H 03/13/17 04:05 POC Glucose (mg/dL) 201 mg/dL (65-99) H 03/13/17 11:22 Lactic Acid 0.8 mmol/L (0.4-2.0) 03/05/17 16:48 Uric Acid 3.8 mg/dL (2.6-6.0) 03/04/17 18:05 Calcium 8.5 mg/dL (8.5-10.1) 03/13/17 04:05 Corrected Calcium 9.6 mg/dL (8.5-10.1) 03/13/17 04:05 Magnesium 1.6 mg/dL (1.7-2.9) L 03/13/17 04:05 Total Bilirubin 0.30 mg/dL (0.2-1.0) 03/13/17 04:05 AST 24 Units/L (15-37) 03/13/17 04:05 ALT 20 Units/L (12-78) 03/13/17 04:05 Alkaline Phosphatase 51 Units/L (46-116) 03/13/17 04:05 C-Reactive Protein 70.80 mg/L (0-3.0) H 03/13/17 04:05 Total Protein 5.4 g/dL (6.4-8.2) L 03/13/17 04:05 Albumin 2.6 g/dL (3.4-5.0) L 03/13/17 04:05 Globulin 2.8 g/dL (2.5-4.5) 03/13/17 04:05 Albumin/Globulin Ratio 0.9 Ratio (1.1-2.1) L 03/13/17 04:05 Specimen Type Clean catch urine 03/05/17 03:47 Urine Color Yellow (YELLOW) 03/05/17 03:47 Urine Appearance Clear (CLEAR) 03/05/17 03:47 Urine pH 5.0 (5.0 - 8.0) 03/05/17 03:47 Ur Specific [place] 1.020 (1.000-1.030) 03/05/17 03:47 Urine Protein 2+ (NEGATIVE) 03/05/17 03:47 Urine Glucose (UA) 2+ (NEGATIVE) 03/05/17 03:47 Urine Ketones Negative (NEGATIVE) 03/05/17 03:47 Urine Occult Blood 1+ (NEGATIVE) 03/05/17 03:47 Urine Nitrite Negative (NEGATIVE) 03/05/17 03:47 Urine Bilirubin Negative (NEGATIVE) 03/05/17 03:47 Urine Urobilinogen Normal (NORMAL) 03/05/17 03:47 Ur Leukocyte Esterase 1+ (NEGATIVE) 03/05/17 03:47 Urine RBC 0-3 /HPF (NEGATIVE) 03/05/17 03:47 Urine WBC 1-4 /HPF (NEGATIVE) 03/05/17 03:47 Ur Squamous Epith Cells Few /HPF (NEGATIVE) 03/05/17 03:47 Urine Bacteria Trace /HPF (NEGATIVE) 03/05/17 03:47 Urine Mucus Few /HPF (NEGATIVE) 03/05/17 03:47 Ur Culture Indicated? No/not indicated 03/05/17 03:47 Fluid Source Synovial 03/10/17 12:26 Fluid WBC 46282 Cubic/mm 03/10/17 12:26 Fluid RBC 0 Cubic/mm 03/10/17 12:26 Fluid Crystals None seen (None Seen) 03/10/17 12:26 Vancomycin Trough 15.4 ug/mL (15-20) 03/11/17 20:58 - Plan (1) Chondrocalcinosis Status: Acute Plan: CONTINUE IV ABX, WOUND CARE, CONTINUE TO MONITOR (2) Pseudogout of ankle Status: Acute Qualifiers: Laterality: left Qualified Code(s): M11.272 - Other chondrocalcinosis, left ankle and foot Plan: CONTINUE IV ABX, CONTINUE WOUND CARE, CONTINUE TO MONITOR (3) Staphylococcus aureus bacteremia with sepsis Status: Acute Plan: CONTINUE VANCOMYCIN IV, CONTINUE TO MONITOR LABS AND PATIENT
[2017-03-13] MEDS: VANCOMYCIN HCL 1 GM VIAL 1 GM in NS 250 ML IV 250 ML IV SCH ×2 (12:47→22:06)
[2017-03-13] MEDS ORDERED: SODIUM CHL HYPERTONIC ** 3% ** 500 ML IV ONE (13:00)
[2017-03-13] MEDS ORDERED: PHARMACY CONSULT - DOSE _____ XX SCH (14:00)
[2017-03-13] MEDS: LASIX IVP SCH ×2 (15:23→20:43)
[2017-03-13] MEDS: SYNTHROID 100 mcg TAB PO SCH ×2 (15:27→15:36)
[2017-03-13] MEDS: SNACK - Diabetic Appropriate PO SCH (20:46)
[2017-03-13 21:20] LABS: CREATININE 0.71 mg/dL (0.55-1.02); VANCOMYCIN,TROUGH 19.6 ug/mL (15-20)
[2017-03-14] MEDS: CLINIMIX 5 %/25 % 1,000 ML with MVI INJ (ADULT) 10 ML, TRACE ELEMENTS INJ 10 ML, TPN EL... IV SCH ×5 (00:40)
[2017-03-14] MEDS: DUONEB 0.5 MG/3 MG NEB SCH ×4 (01:09→12:01)
[2017-03-14] MEDS: NS 1000 ML 1,000 ML IV SCH (04:35)
[2017-03-14 05:37] LABS: BASOPHILS # (AUTO) 0.1 X10^3/uL (0.0-0.1); BASOPHILS % (AUTO) 0.6 % (0.2-1.0); EOSINOPHILS # (AUTO) 0.1 x10^3/uL (0.0-0.2); EOSINOPHILS % (AUTO) 1.5 % (0.9-2.9); HEMATOCRIT 30.4 % (36.0-47.0); HEMOGLOBIN 10.2 g/dL (12.0-16.0); LYMPHOCYTES # (AUTO) 0.8 X10^3/uL (1.3-2.9); LYMPHOCYTES % (AUTO) 9.1 % (21.0-51.0); MEAN CORPUSCULAR HEMOGLOBIN 27.1 pg (27.0-34.0); MEAN CORPUSCULAR HGB CONC 33.5 g/dL (33.0-35.0); MEAN CORPUSCULAR VOLUME 80.8 fL (80.0-100.0); MEAN PLATELET VOLUME 8.8 fL (7.4-11.0); MONOCYTES # (AUTO) 0.9 x10^3/uL (0.3-0.8); MONOCYTES % (AUTO) 10.2 % (0.0-13.0); NEUTROPHILS # (AUTO) 6.6 x10^3/uL (2.2-4.8); NEUTROPHILS % (AUTO) 78.6 % (42.0-75.0); PLATELET COUNT 290 X10^3/uL (150.0-450.0); RED BLOOD COUNT 3.76 X10^6/uL (3.5-5.4); RED CELL DISTRIBUTION WIDTH 18.2 % (11.6-16.5); WHITE BLOOD COUNT 8.4 X10^3/uL (3.6-10.0)
[2017-03-14 05:54] LABS: ALANINE AMINOTRANSFERASE 20 Units/L (12-78); ALBUMIN 2.9 g/dL (3.4-5.0); ALKALINE PHOSPHATASE 50 Units/L (46-116); ASPARTATE AMINO TRANSFERASE 22 Units/L (15-37); BLOOD UREA NITROGEN 15 mg/dL (7-18); CARBON DIOXIDE 31.4 mmol/L (21-32); CHLORIDE 98 mmol/L (98-107); COR CA(FOR HYPOALB) 9.9 mg/dL (8.5-10.1); COR NA(FOR HYPERGLY) 137 mmol/L (136-145); CREATININE 0.77 mg/dL (0.55-1.02); SODIUM 135 mmol/L (136-145); TOTAL PROTEIN 5.9 g/dL (6.4-8.2); eGFR BLACK RACES > 60 (>60); eGFR NON BLACK RACES > 60 (>60)
--- NOTE | 2017-03-14 07:22 | RAD ---
Examination: Portable AP chest History: CHF Comparison reference 03/12/2017 Findings:Persistent mild cardiac enlargement. Persistent bibasal opacities consistent with airspace d isease, edema and pleural fluid. This is slightly more prominent on the right than the left. Extensiv e vascular congestion is present centrally. No change in position of the left subclavian line. Impression: Persistent cardiac enlargement with bibasal opacities consistent with pneumonia, fluid, p ulmonary edema. No interval improvement is noted. Reported By:
[2017-03-14] MEDS: ALBUMIN HUMAN 25%- 100ML 100 ML IV SCH (08:56)
[2017-03-14] MEDS: MOBIC TAB 15 MG PO SCH (08:57)
[2017-03-14] MEDS: ACTOS PO SCH (08:57)
[2017-03-14] MEDS: CALAN SR 240 MG PO SCH (08:57)
[2017-03-14] MEDS: MEGACE PO SCH (08:57)
[2017-03-14] MEDS: ROCEPHIN VIAL 1 GM 1 GM in NS 100 ML IV + SPIKE MINIBAG* 100 ML IV SCH (10:23)
[2017-03-14] MEDS: VANCOMYCIN HCL 1 GM VIAL 1 GM in NS 250 ML IV 250 ML IV SCH (11:30)
[2017-03-14] MEDS ORDERED: K-DUR TAB 20 MEQ PO SCH (12:00)
[2017-03-14 12:24] VITALS: BP 151/81
--- NOTE | 2017-03-14 15:17 | OR.GENERIC ---
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 Postoperative diagnosis-2 LEFT ankle pain,subtalar osteoarthritis, suspected septic arthritis of the LEFT subtalar joint. Procedure-aspiration of the LEFT subtalar joint under fluoroscopy. Indication-patient 86-year-old female presented to the hospital and admitted for LEFT ankle pain. X-rays and CTs shows signs of osteoarthritis involving the posterior subtalar joint. Redness and swelling of the LEFT or ankle noted. Blood culture positive for staph infection. Clinical suspicion of Vanige septic arthritis. Patient did not get an MRI because of her spinal cord stimulator that was placed. Procedure-lesions in the preoperative holding area. Limb marked. Consent obtained. Complications including but not limited to infection, neurovascular damage, need for further procedure, conversion to Open arthrotomy, persistence of pain, need for further procedures were discussed with her. She consented for the surgery. patient placed on the RIGHT lateral position. LEFT lower limb placed on sterile bump. LEFT ankle prepped and draped. Fluoroscopy used to get an appropriate view of the subtalar joint. Surface marking done. The proposed aspiration site infiltrated with local. After appropriate infiltration with local and appropriate anesthesia, an 18-gauge needle was used to advance into the subtalar joint. Successful placement of subtalar joint confirmed with extrusion of the joint fluid as well as lighting of the joint with Omnipaque. After confirmation of subtalar joint aspiration and the joint then aspirated about 3 cc of clear to cloudy joint fluid. The joint was infiltrated with local anesthetic. No cortisone injection was done. Specimen sent to the lab for cell count, central-type crystals and Gram stain and culture and sensitivity. Needle removed hemostasis maintained and Band-Aid applied. Patient was shifted to the PACU in stable and afebrile condition. Tolerated the procedure well. The family was updated about the procedure. We will wait for culture and sensitivity report. And treated appropriately with antibiotics for which she sensitive.
--- NOTE | 2017-03-19 14:33 | PCM.PROG ---
Progress Note - Progress Note for Day of Date: 03/06/17 - Subjective Subjective: WAS ADMITTED ON 03/04/17 FOR LEFT LOWER EXTREMITY REDNESS AND EDEMA AND HYPONATREMIA. A CT OF THE LEFT LOWER EXTREMITY REPORTED CONCERNS FOR AN AGE INDETERMINATE DEPRESSED FRACTURE OF THE LEFT CUBOID AT THE CALCANEO CUBOID ARTICULATION, SEVERE OSTEOPENIA, MODERATE OSTEOARTHRITIS INVOLVING THE SUBTALAR AND MULTIPLE MIDFOOT ARTICULATIONS, AND OSTEOCHONDRAL LESION WITH SUBCORTICAL CYST. SHE CONTINUES WITH REDNESS AND SWELLING TO THE LOWER EXTREMITY WELL PAIN. NO NEW COMPLAINTS VOICED. - Past Medical Family Social History Past Med/Fam/Surg Hx: No changes since H&P Allergies: Allergies Sulfa (Sulfonamide Antibiotics) [SULFA] Allergy (Unknown, Verified 03/04/17 18: 57) moxifloxacin Allergy (Verified 03/04/17 18:57) - Review of Systems ROS: No change since H&P - Vital Signs and I&O's Vital Signs: Temperature 98.0 F Pulse Rate [Left Brachial] 100 Pulse Rate [Right Brachial] 76 Pulse Rate [Left] 78 Pulse Rate 105 Respiratory Rate 20 Blood Pressure [Right Arm] 134/59 Blood Pressure [Left Arm] 151/81 Blood Pressure 105/52 O2 Sat by Pulse Oximetry 96 - Physical Exam Oriented: Normal Eyes: Normal Ear: Normal Nose: Normal Throat: Normal Respiratory: Normal Cardiovascular: Normal : Normal Auscultation: Bowel Sounds: Normal Tenderness: Normal Skin: Red (LEFT ANKLE/FOOT), Tender Musculoskeletal: Left, Ankle, Foot, Swelling, Tender Psychiatric: Normal Mood Description: Calm Affect: Normal Speech Pattern: Clear - Laboratory and Diagnostics Result Diagrams: 03/14/17 04:20 03/14/17 04:00 Labs: 03/10/17 12:18 Ankle - Left Gram Stain - Final 03/10/17 12:18 Ankle - Left - Final 03/06/17 21:50 Blood Blood Culture - Final 03/06/17 22:45 Blood Blood Culture - Final 03/05/17 16:36 Blood Blood Culture - Final Staphylococcus Aureus 03/05/17 16:48 Blood Blood Culture - Final Staphylococcus Aureus Laboratory WBC 8.4 X10^3/uL (3.6-10.0) 03/14/17 04:20 RBC 3.76 X10^6/uL (3.5-5.4) 03/14/17 04:20 Hgb 10.2 g/dL (12.0-16.0) L 03/14/17 04:20 Hct 30.4 % (36.0-47.0) L 03/14/17 04:20 MCV 80.8 fL (80.0-100.0) 03/14/17 04:20 MCH 27.1 pg (27.0-34.0) 03/14/17 04:20 MCHC 33.5 g/dL (33.0-35.0) 03/14/17 04:20 RDW 18.2 % (11.6-16.5) H 03/14/17 04:20 Plt Count 290 X10^3/uL (150.0-450.0) 03/14/17 04:20 Plt Count Comment Adequate (ADEQUATE) 03/12/17 04:10 MPV 8.8 fL (7.4-11.0) 03/14/17 04:20 Neut % 78.6 % (42.0-75.0) H 03/14/17 04:20 Lymph % 9.1 % (21.0-51.0) L 03/14/17 04:20 [place] % 10.2 % (0.0-13.0) 03/14/17 04:20 Eos % 1.5 % (0.9-2.9) 03/14/17 04:20 Baso % 0.6 % (0.2-1.0) 03/14/17 04:20 Neut # 6.6 x10^3/uL (2.2-4.8) H 03/14/17 04:20 Lymph # 0.8 X10^3/uL (1.3-2.9) L 03/14/17 04:20 Stone # 0.9 x10^3/uL (0.3-0.8) H 03/14/17 04:20 Eos # 0.1 x10^3/uL (0.0-0.2) 03/14/17 04:20 Baso # 0.1 X10^3/uL (0.0-0.1) 03/14/17 04:20 Absolute Nucleated RBC 0.0 /100WBC 03/14/17 04:20 Total Counted 100 03/12/17 04:10 Neutrophils % (Manual) 66 % (39-76) 03/12/17 04:10 Band Neutrophils % 6 % (0-10) 03/12/17 04:10 Lymphocytes % (Manual) 16 % (13-43) 03/12/17 04:10 Monocytes % (Manual) 10 % (4-9) H 03/12/17 04:10 Eosinophils % (Manual) 2 % (0-6) 03/12/17 04:10 Nucleated RBCs Cancelled 03/11/17 05:31 Atypical Lymphocytes Cancelled 03/11/17 05:31 Blast Cells Cancelled 03/11/17 05:31 Smudge Cells Cancelled 03/11/17 05:31 Toxic Granulation Cancelled 03/11/17 05:31 Dohle Bodies Cancelled 03/11/17 05:31 Bello Rods Cancelled 03/11/17 05:31 Plt Clumps, EDTA Cancelled 03/11/17 05:31 Giant Platelets Cancelled 03/11/17 05:31 Plt Morphology Comment Normal (NORMAL) 03/12/17 04:10 RBC Morphology Abnormal (NORMAL) A 03/12/17 04:10 Dimorphic RBCs Cancelled 03/11/17 05:31 Polychromasia Cancelled 03/11/17 05:31 Hypochromasia 1+ A 03/12/17 04:10 Poikilocytosis Cancelled 03/11/17 05:31 Basophilic Stippling Cancelled 03/11/17 05:31 Anisocytosis Cancelled 03/11/17 05:31 Microcytosis Cancelled 03/11/17 05:31 Macrocytosis Cancelled 03/11/17 05:31 Spherocytes Cancelled 03/11/17 05:31 Pappenheimer Bodies Cancelled 03/11/17 05:31 Sickle Cells Cancelled 03/11/17 05:31 Target Cells Cancelled 03/11/17 05:31 Tear Drop Cells Cancelled 03/11/17 05:31 Ovalocytes Cancelled 03/11/17 05:31 Stomatocytes Cancelled 03/11/17 05:31 Helmet Cells Cancelled 03/11/17 05:31 Heller-[place] Bodies Cancelled 03/11/17 05:31 [place] Rings Cancelled 03/11/17 05:31 [place] Cells Cancelled 03/11/17 05:31 Crenated Cell Cancelled 03/11/17 05:31 Acanthocytes (Spur) Cancelled 03/11/17 05:31 Rouleaux Cancelled 03/11/17 05:31 Schistocytes Cancelled 03/11/17 05:31 ESR 23 MM/HOUR (0-20) H 03/13/17 04:05 Sodium 135 mmol/L (136-145) L 03/14/17 04:00 Corrected Sodium 137 mmol/L (136-145) 03/14/17 04:00 Potassium 3.0 mmol/L (3.5-5.1) L* 03/14/17 04:00 Chloride 98 mmol/L (98-107) 03/14/17 04:00 Carbon Dioxide 31.4 mmol/L (21-32) 03/14/17 04:00 BUN 15 mg/dL (7-18) 03/14/17 04:00 Creatinine 0.77 mg/dL (0.55-1.02) 03/14/17 04:00 Est GFR (MDRD) Af Amer > 60 (>60) 03/14/17 04:00 Est GFR (MDRD) Non-Af > 60 (>60) 03/14/17 04:00 Glucose 171 mg/dL (65-99) H 03/14/17 04:00 POC Glucose (mg/dL) 168 mg/dL (65-99) H 03/14/17 12:09 Lactic Acid 0.8 mmol/L (0.4-2.0) 03/05/17 16:48 Uric Acid 3.8 mg/dL (2.6-6.0) 03/04/17 18:05 Calcium 9.0 mg/dL (8.5-10.1) 03/14/17 04:00 Corrected Calcium 9.9 mg/dL (8.5-10.1) 03/14/17 04:00 Magnesium 1.6 mg/dL (1.7-2.9) L 03/13/17 04:05 Total Bilirubin 0.40 mg/dL (0.2-1.0) 03/14/17 04:00 AST 22 Units/L (15-37) 03/14/17 04:00 ALT 20 Units/L (12-78) 03/14/17 04:00 Alkaline Phosphatase 50 Units/L (46-116) 03/14/17 04:00 C-Reactive Protein 70.80 mg/L (0-3.0) H 03/13/17 04:05 Total Protein 5.9 g/dL (6.4-8.2) L 03/14/17 04:00 Albumin 2.9 g/dL (3.4-5.0) L 03/14/17 04:00 Globulin 3.0 g/dL (2.5-4.5) 03/14/17 04:00 Albumin/Globulin Ratio 1.0 Ratio (1.1-2.1) L 03/14/17 04:00 Specimen Type Clean catch urine 03/05/17 03:47 Urine Color Yellow (YELLOW) 03/05/17 03:47 Urine Appearance Clear (CLEAR) 03/05/17 03:47 Urine pH 5.0 (5.0 - 8.0) 03/05/17 03:47 Ur Specific [place] 1.020 (1.000-1.030) 03/05/17 03:47 Urine Protein 2+ (NEGATIVE) 03/05/17 03:47 Urine Glucose (UA) 2+ (NEGATIVE) 03/05/17 03:47 Urine Ketones Negative (NEGATIVE) 03/05/17 03:47 Urine Occult Blood 1+ (NEGATIVE) 03/05/17 03:47 Urine Nitrite Negative (NEGATIVE) 03/05/17 03:47 Urine Bilirubin Negative (NEGATIVE) 03/05/17 03:47 Urine Urobilinogen Normal (NORMAL) 03/05/17 03:47 Ur Leukocyte Esterase 1+ (NEGATIVE) 03/05/17 03:47 Urine RBC 0-3 /HPF (NEGATIVE) 03/05/17 03:47 Urine WBC 1-4 /HPF (NEGATIVE) 03/05/17 03:47 Ur Squamous Epith Cells Few /HPF (NEGATIVE) 03/05/17 03:47 Urine Bacteria Trace /HPF (NEGATIVE) 03/05/17 03:47 Urine Mucus Few /HPF (NEGATIVE) 03/05/17 03:47 Ur Culture Indicated? No/not indicated 03/05/17 03:47 Fluid Source Synovial 03/10/17 12:26 Fluid WBC [id number] Cubic/mm 03/10/17 12:26 Fluid RBC 0 Cubic/mm 03/10/17 12:26 Fluid Crystals None seen (None Seen) 03/10/17 12:26 Vancomycin Trough 19.6 ug/mL (15-20) 03/13/17 20:55 - Plan (1) Chondrocalcinosis Status: Acute Plan: CONTINUE IV ABX, WOUND CARE, CONTINUE TO MONITOR (2) Left ankle pain Status: Acute Qualifiers: Chronicity: acute Qualified Code(s): M25.572 - Pain in left ankle and joints of left foot Plan: pAIN MGMT INDICATED (3) Pseudogout of ankle Status: Acute Qualifiers: Laterality: left Qualified Code(s): M11.272 - Other chondrocalcinosis, left ankle and foot Plan: CONTINUE IV ABX, CONTINUE WOUND CARE, CONTINUE TO MONITOR
== END 2017-03-14 14:40 | DRG 548 ==
LOC: ER 16:27 → MED/SURG 19:06
PROVIDERS: ADMIT Internal Medicine; ATTEND Internal Medicine
PROC: 05H633Z Insertion of Infusion Device into Left Subclavian Vein, Percutaneous Approach (ICD-10-PCS; 2017-03-10)
PROC: 0S9 Lower Joints, Drainage (ICD-10-PCS; principal; 2017-03-14)
DX: M00.071 Staphylococcal arthritis, right ankle and foot (principal); B95.61 Methicillin susceptible Staphylococcus aureus infection as the cause of diseases classified elsewhere; A41.02 Sepsis due to Methicillin resistant Staphylococcus aureus; E87.1 Hypo-osmolality and hyponatremia; M11.272 Other chondrocalcinosis, left ankle and foot; M25.572 Pain in left ankle and joints of left foot; E11.65 Type 2 diabetes mellitus with hyperglycemia; E78.2 Mixed hyperlipidemia; I10 Essential (primary) hypertension; E03.8 Other specified hypothyroidism; M13.89 Other specified arthritis, multiple sites; R60.0 Localized edema; R53.1 Weakness
CPT/HCPCS: 36415; 36556; 71045; 73610; 73630; 73700; 76000; 80053; 80202; 81001; 82565; 83605; 83735; 84132; 84550; 85025; 85652; 86140; 87040; 87070; 87075; 87077; 87186; 87205; 89050; 89051; 89060; 93005; 93306; 93970; 94640; 94760; 96365; 96372; 99221; 99231; 99283; 99284; A4216; A4222; B5200; P9047; S0020; S0179; J0696; J0712; J1100; J1815; J1885; J1940; J2001; J3370; J7620